=== PATIENT | female | born 1990 | race Caucasian/White ===

== ENCOUNTER 2016-08-06 13:52 | Inpatient (IN) | payer MEDICAID ==
[2016-08-06] MEDS ORDERED: Nalbuphine 20 MG/1 ML Amp IVPUSH PRN (16:18)
[2016-08-06] MEDS ORDERED: Acetaminophen 325 MG Tab PO PRN (16:18)
[2016-08-06] MEDS ORDERED: Ondansetron 4 MG/2 ML SDV IVPUSH PRN (16:18)
[2016-08-06] MEDS ORDERED: Sodium Chloride 0.9% 10 ML Syringe FLUSH PRN (16:18)
[2016-08-06] MEDS ORDERED: Oxytocin/Lactated Ringers 10 UNIT/1,000 ML BAG IV SCH ×2 (16:30→20:00)
--- NOTE | 2016-08-06 16:30 | PCM.LDHP ---
L&D History of Present Illness - General Date of Service: 08/06/16 Admit Problem/Dx: Patient Status Order with Admit Dx/Problem 08/06/16 16:18 Patient Status [ADT] Routine Admission Diagnosis/Problem Admission Diagnosis/Problem Source of Information: Patient History Limitations: Reports: No limitations - History of Present Illness Introduction:: 25 y/o TEMO 08/03/2016 EGA 40w3d GBS negative presented to L&D for evaluation of increased frequency and strength of contractions no leaking fluid or gush of fluid, has had slight bloody show. H/O anti-M antibody (IgM antibody ) no H/O blood transfusions. H/O debridement osteomyelitis left wrist 2002. O positive, Anti-M antibody, Hgb 01/06/17 13.2 plt [id number], neg pap, rubella immune , VDRL NR, HBsAg neg, HIV neg, GC/CT neg. HgB 05/21/16 11.2 OBGS 115 05/21/16 Timing/Duration: Reports: hour(s): Location, : Reports: Abdomen, Lower back Quality: Reports: Ache, Pressure Improves with: Reports: None Worsens with: Reports: None Associated Symptoms: Reports: N - Related Data Allergies/Adverse Reactions: Allergies Allergy/AdvReac Type Severity Reaction Status Date / Time No Known Allergies Allergy Verified 07/27/16 11:24 Past Medical History : 1 Para: 0 (0000) LMP (Approximate): H&P Review of Systems - Review of Systems: Review Of Systems: See Below General: Reports: no symptoms HEENT: Reports: no symptoms Pulmonary: Reports: No Symptoms Cardiovascular: Reports: no symptoms Gastrointestinal: Reports: No symptoms Genitourinary: Reports: no symptoms Musculoskeletal: Reports: no symptoms Skin: Reports: no symptoms Psychiatric: Reports: no symptoms Neurological: Reports: No Symptoms Hematologic/Lymphatic: Reports: no symptoms Immunologic: Reports: no symptoms L&D Exam - Exam Exam: See Below - Vital Signs Vital Signs: Last Vital Signs Temp 98.6 F 08/06/16 14:35 Pulse 69 08/06/16 14:35 Resp 16 08/06/16 14:35 BP 111/72 08/06/16 14:35 Pulse Ox 100 08/06/16 14:35 Weight: 176 lb - OB Specific Fundal Height in cm: 39 Contraction Duration (sec): 60 Contraction Frequency (min): 15-30 Contraction Intensity: Mild movement: active heart tones: present heart tones per min: 135 Heart Rate (FHR) Variability: Moderate (6-25 bmp) Presentation: Vertex - Albright Score Albright Score Cervix Position: Posterior Albright Score Consistency: Soft Albright Score Effacement: 51-70% Albright Score Dilation: 1-2 cm Albright Score Infant's Station: -1 ,0 Albright Score Total: 7 - Exam General: alert, oriented HEENT: Mucosa moist & pink Neck: supple, trachea midline Lungs: Clear to auscultation, Normal respiratory effort Cardiovascular: regular rate, regular rhythm Abdomen: normal bowel sounds, soft Genitourinary: Normal external exam Extremities: normal inspection Skin: warm, dry, intact Neurological: reflexes equal bilateral Psychiatric: alert, normal affect, normal mood - Problem List (1) 40 weeks gestation of SNOMED Code(s): 30939255 ICD Code: Z3A.40 - 40 WEEKS GESTATION OF Status: Acute Current Visit: Yes Problem List Initiated/Reviewed/Updated: No Orders Last 24hrs: Active Orders 24 hr Category Date Time Status Patient Status [ADT] Routine ADT 08/06/16 16:18 Ordered Activity as Tolerated [RC] PFP Care 08/06/16 16:18 Ordered Communication Order [RC] ASDIRECTED Care 08/06/16 16:18 Ordered Heart Tones [RC] ASDIRECTED Care 08/06/16 16:18 Ordered Height and Weight [RC] UPON Care 08/06/16 16:18 Ordered Notify Provider [RC] PFP Care 08/06/16 16:18 Ordered Notify Provider [RC] PRN Care 08/06/16 16:18 Ordered Peripheral IV Care [RC] . DIRECTED Care 08/06/16 16:18 Ordered Vital Signs [RC] PER UNIT ROUTINE Care 08/06/16 16:18 Ordered Regular Diet [DIET] Diet 08/06/16 Dinner Ordered CBC WITH AUTO DIFF [HEME] Stat Lab 08/06/16 16:18 Ordered TYPE AND SCREEN [BBK] Stat Lab 08/06/16 16:18 Ordered Acetaminophen [Tylenol] Med 08/06/16 16:18 Ordered 650 mg PO Q4H PRN Lactated Ringers [Ringers, Lactated] 1,000 ml Med 08/06/16 16:30 Ordered IV ASDIRECTED Lidocaine 1% [Xylocaine 1%] Med 08/06/16 16:18 Once 20 ml INJECT ONETIME ONE Nalbuphine [Nubain] Med 08/06/16 16:18 Ordered 10 mg IVPUSH Q2H PRN Ondansetron [Zofran] Med 08/06/16 16:18 Ordered 4 mg IVPUSH Q4H PRN Oxytocin/Lactated Ringers [Pitocin in LR 10 Units/1,000 Med 08/06/16 16:30 Ordered ML] 10 unit in 1,000 ml IV ASDIRECTED Sodium Chloride 0.9% [Saline Flush] Med 08/06/16 16:18 Ordered 10 ml FLUSH ASDIRECTED PRN hydrOXYzine HCl [Atarax] Med 08/06/16 21:00 Ordered 50 mg PO BEDTIME Electronic Heart Tones Ext w TOCO [WOMSER] Oth 08/06/16 16:18 Ordered Routine Electronic Heart Tones Internal [WOMSER] Per Unit Ot 08/06/16 16:18 Ordered Routine Peripheral IV Insertion Adult [OM.PC] Routine Ot 08/06/16 16:18 Ordered Resuscitation Status Routine Resus Stat 08/06/16 16:18 Ordered Assessment/Plan Comment:: Admit for labor and delivery (Observation status for now)
[2016-08-06] MEDS ORDERED: Lidocaine 1% 50 ML MDV INJECT ONE (20:00)
[2016-08-06] MEDS: Misoprostol 25 MCG (1/4 of 100 MCG) Tab VAG SCH (20:19)
[2016-08-06] MEDS ORDERED: hydrOXYzine HCl 25 MG Tab PO SCH (21:00)
[2016-08-07] MEDS: Lactated Ringers 1,000 ML IV SCH ×4 (00:42→07:47)
[2016-08-07] MEDS ORDERED: fentaNYL 100 MCG/2 ML SDV ONE (00:53)
[2016-08-07] MEDS ORDERED: fentaNYL 100 MCG/2 ML SDV EPIDUR PRN (01:00)
[2016-08-07] MEDS ORDERED: diphenhydrAMINE 50 MG/ML SDV IVPUSH PRN (01:00)
[2016-08-07] MEDS ORDERED: ePHEDrine 50 MG/ML SDV IVPUSH PRN (01:00)
[2016-08-07] MEDS: Bupivacaine/fentaNYL/NS 100 ML Bag EPIDUR SCH ×2 (01:24→08:45)
--- NOTE | 2016-08-07 01:37 | PCM.PREANE ---
Preanesthetic Assessment - Anesthesia/Transfusion/Family Hx Anesthesia History: Prior Anesthesia Without Reaction Family History of Anesthesia Reaction: No Transfusion History: No Prior Transfusion(s) - Review of Systems General: No Symptoms Pulmonary: No Symptoms Cardiovascular: No Symptoms Gastrointestinal: No symptoms Neurological: No Symptoms Other: Reports: None - Physical Assessment Pulse: 84 O2 Sat by Pulse Oximetry: 100 Respiratory Rate: 16 Blood Pressure: 126/64 Temperature: 36.6 C Vital Signs: Last Vital Signs Temp 37.0 C 08/06/16 14:35 Pulse 69 08/06/16 14:35 Resp 16 08/06/16 14:35 BP 111/72 08/06/16 14:35 Pulse Ox 100 08/06/16 14:35 Height: 1.6 m Weight: 79.968 kg ASA Class: 2 Mental Status: Alert & Oriented x3 Airway Class: Mallampati = 1 Dentition: Reports: Normal Dentition Thyro-Mental Finger Breadths: 3 Mouth Opening Finger Breadths: 3 ROM/Head Extension: Full Lungs: Clear to auscultation, Normal respiratory effort Cardiovascular: Regular Rate, Regular Rhythm, No Murmurs - Lab Values: Laboratory Last Values WBC 13.52 K/mm3 (3.98-10.04) H 08/06/16 16:34 RBC 4.21 M/mm3 (3.98-5.22) 08/06/16 16:34 Hgb 11.1 gm/L (11.2-15.7) L 08/06/16 16:34 Hct 33.8 % (34.1-44.9) L 08/06/16 16:34 MCV 80.3 fl (79.4-94.8) 08/06/16 16:34 MCH 26.4 pg (25.6-32.2) 08/06/16 16:34 MCHC 32.8 g/dl (32.2-35.5) 08/06/16 16:34 RDW Std Deviation 41.5 fL (36.4-46.3) 08/06/16 16:34 Plt Count 157 K/mm3 (182-369) L 08/06/16 16:34 MPV 12.3 fl (9.4-12.3) 08/06/16 16:34 Neut % (Auto) 76.1 % (34.0-71.1) H 08/06/16 16:34 Lymph % (Auto) 13.8 % (19.3-51.7) L 08/06/16 16:34 Dillon % (Auto) 8.9 % (4.7-12.5) 08/06/16 16:34 Eos % (Auto) 0.7 (0.7-5.8) 08/06/16 16:34 Baso % (Auto) 0.1 % (0.1-1.2) 08/06/16 16:34 Neut # (Auto) 10.28 K/mm3 (1.56-6.13) H 08/06/16 16:34 Lymph # (Auto) 1.87 K/mm3 (1.18-3.74) 08/06/16 16:34 Dillon # (Auto) 1.21 K/mm3 (0.24-0.36) H 08/06/16 16:34 Eos # (Auto) 0.09 K/mm3 (0.04-0.36) 08/06/16 16:34 Baso # (Auto) 0.02 K/mm3 (0.01-0.08) 08/06/16 16:34 Blood Type O POSITIVE 08/06/16 16:34 Gel Antibody Screen Positive 08/06/16 16:34 - Allergies Allergies/Adverse Reactions: Allergies Allergy/AdvReac Type Severity Reaction Status Date / Time No Known Allergies Allergy Verified 08/06/16 18:24 - Anesthesia Plan Pre-Op Medication Ordered: None - Acknowledgements Anesthesia Type Planned: Epidural Pt an Appropriate Candidate for the Planned Anesthesia: Yes Alternatives and Risks of Anesthesia Discussed w Pt/Guardian: Yes Pt/Guardian Understands and Agrees with Anesthesia Plan: Yes PreAnesthesia Questionnaire Gastrointestinal History: Reports: [place] [employer] History: Reports: - Past Surgical History Musculoskeletal Surgical History: Reports: Other (see below) Other Musculoskeletal Surgeries/Procedures:: 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 - SUBSTANCE USE Smoking Status *Q: Former Smoker Tobacco Use Within Last Twelve Months: Cigarettes Second Hand Smoke Exposure: No Recreational Drug Use History: No - HOME MEDS Home Medications: Home Meds Nitrofurantoin Dillon/Macrocryst [Macrobid] 100 mg PO BID 08/06/16 [History] Pnv No.122/Iron/Folic Acid [ Multi Tablet] 1 each PO DAILY 08/06/16 [ History] - CURRENT (IN HOUSE) MEDS Current Meds: Current Medications Acetaminophen (Tylenol) 650 mg PO Q4H PRN PRN Reason: Pain (Mild 1-3) and fever Diphenhydramine HCl (Benadryl) 25 mg IVPUSH Q6H PRN PRN Reason: Itching Ephedrine Sulfate (Ephedrine Sulfate) 5 mg IVPUSH ASDIRECTED PRN PRN Reason: HYPOTENTSION Fentanyl (Sublimaze) 100 mcg EPIDUR Q3H PRN PRN Reason: PAIN Fentanyl/Bupivacaine HCl (Fentanyl/Bupivacaine/Ns 2 Mcg-0.125% 100 Ml) 100 ml EPIDUR ASDIRECTED [facility] Last Admin: 08/07/16 01:24 Dose: 100 ml Hydroxyzine HCl (Atarax) 50 mg PO BEDTIME [facility] Lactated Ringer's (Ringers, Lactated) 1,000 mls @ 100 mls/hr IV ASDIRECTED [facility] Oxytocin/Lactated Ringer's (Pitocin In Lr 10 Units/1,000 Ml) 10 unit in 1,000 mls @ 500 mls/hr IV ASDIRECTED ARIANA PRN Reason: Protocol Oxytocin/Lactated Ringer's (Pitocin In Lr 10 Units/1,000 Ml) 10 unit in 1,000 mls @ 12 mls/hr IV TITRATE ARIANA; 2 MUNITS/MIN PRN Reason: Protocol Nalbuphine HCl (Nubain) 10 mg IVPUSH Q2H PRN PRN Reason: Pain (moderate 4-6) Ondansetron HCl (Zofran) 4 mg IVPUSH Q4H PRN PRN Reason: Nausea/Vomiting Sodium Chloride (Saline Flush) 10 ml FLUSH ASDIRECTED PRN PRN Reason: Keep Vein Open Discontinued Medications Fentanyl (Sublimaze) Confirm Administered Dose 100 mcg .ROUTE .STK-MED ONE Stop: 08/07/16 00:54 Last Admin: 08/07/16 01:23 Dose: 100 mcg Lidocaine HCl (Xylocaine 1%) 20 ml INJECT ONETIME ONE Stop: 08/06/16 20:01 Misoprostol (Cytotec) 25 mcg VAG Q4HR [facility]ANA Stop: 08/07/16 01:01 Last Admin: 08/06/16 20:19 Dose: 25 mcg
[2016-08-07] MEDS: Misoprostol 25 MCG (1/4 of 100 MCG) Tab VAG SCH (01:59)
--- NOTE | 2016-08-07 07:00 | PCM.SN ---
- Free Text/Narrative Note: Cervix 6 cm, 100, soft, anterior, vertex +1, Cat I FHR amniotomy performed at 0659 thick meconium stained amniotic fluid
[2016-08-07] MEDS ORDERED: Lidocaine 1% 50 ML MDV ONE (11:56)
[2016-08-07] MEDS ORDERED: Lidocaine 1% 50 ML MDV INJECT ONE (12:00)
--- NOTE | 2016-08-07 12:31 | PCM.DEL ---
L & D Note - General Info Date of Service: 08/07/16 - Delivery Note Labor: spontaneous, augmented by ARM, augmented by oxytocin Cervical Ripening Method: Misoprostil Delivery Outcome: Livebirth (Female liveborn 11:56 AM, Wednesday08/07/2016, EMILIANA the vacuum, x2 in the green. Less than 30 seconds. Minimal pressure pulling on the vacuum, Apgars 8/9. 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 Nuchal cord x1. Weight 3760 g, 8 pounds, 4.6 ounces) Presentation: Left Occiput Anterior (EMILIANA) Nuchal cord: present (X1 tight) Prep: povidone-iodine (betadine Anesthesia Type: Local, Epidural Anesthetic: lidocaine (xylocaine) 1% plain (5 mL) Local anesthetic volume: 5cc Amniotic Fluid Description: Meconium stained Episiotomy Type: Midline Laceration: 4th degree Suture type: other (Monocryl x4 sutures) Suture size: 3-0 Placenta: intact, spontaneous (1158, Wednesday08/07/2016, intact, eccentric cord insertion three-vessel cord) Cord: 3 vessels Estimated blood loss: 500 Resuscitation needed: No [place]: suctioned, bulb syringe, cathether, stimulated, warmed, blanket used, warmer used Provider: Nigel Rutledge Score 1 min: 8 Score 5 min: 9 - Patient Data Vitals - most recent: Last Vital Signs Temp 97.9 F 08/07/16 01:37 Pulse 84 08/07/16 01:37 Resp 16 08/07/16 01:37 BP 126/64 08/07/16 01:37 Pulse Ox 100 08/07/16 01:37 Weight - most recent: 176 lb 4.8 oz Lab Results last 24 hrs: Laboratory Results - last 24 hr 08/06/16 08/06/16 Range/Units 16:34 16:34 WBC 13.52 H (3.98-10.04) K/mm3 RBC 4.21 (3.98-5.22) M/mm3 Hgb 11.1 L (11.2-15.7) gm/L Hct 33.8 L (34.1-44.9) % MCV 80.3 (79.4-94.8) fl MCH 26.4 (25.6-32.2) pg MCHC 32.8 (32.2-35.5) g/dl RDW Std Deviation 41.5 (36.4-46.3) fL Plt Count 157 L (182-369) K/mm3 MPV 12.3 (9.4-12.3) fl Neut % (Auto) 76.1 H (34.0-71.1) % Lymph % (Auto) 13.8 L (19.3-51.7) % Will % (Auto) 8.9 (4.7-12.5) % Eos % (Auto) 0.7 (0.7-5.8) Baso % (Auto) 0.1 (0.1-1.2) % Neut # (Auto) 10.28 H (1.56-6.13) K/mm3 Lymph # (Auto) 1.87 (1.18-3.74) K/mm3 Will # (Auto) 1.21 H (0.24-0.36) K/mm3 Eos # (Auto) 0.09 (0.04-0.36) K/mm3 Baso # (Auto) 0.02 (0.01-0.08) K/mm3 Blood Type O POSITIVE Gel Antibody Screen Positive Med Orders - Current: Current Medications Acetaminophen (Tylenol) 650 mg PO Q4H PRN PRN Reason: Pain (Mild 1-3) and fever Diphenhydramine HCl (Benadryl) 25 mg IVPUSH Q6H PRN PRN Reason: Itching Last Admin: 08/07/16 03:13 Dose: 25 mg Ephedrine Sulfate (Ephedrine Sulfate) 5 mg IVPUSH ASDIRECTED PRN PRN Reason: HYPOTENTSION Fentanyl (Sublimaze) 100 mcg EPIDUR Q3H PRN PRN Reason: PAIN Fentanyl/Bupivacaine HCl (Fentanyl/Bupivacaine/Ns 2 Mcg-0.125% 100 Ml) 100 ml EPIDUR ASDIRECTED [facility] Last Admin: 08/07/16 08:45 Dose: 100 ml Hydroxyzine HCl (Atarax) 50 mg PO BEDTIME [facility] Last Admin: 08/07/16 02:00 Dose: Not Given Lactated Ringer's (Ringers, Lactated) 1,000 mls @ 100 mls/hr IV ASDIRECTED [facility] Last Admin: 08/07/16 07:47 Dose: 100 mls/hr Oxytocin/Lactated Ringer's (Pitocin In Lr 10 Units/1,000 Ml) 10 unit in 1,000 mls @ 500 mls/hr IV ASDIRECTED ARIANA PRN Reason: Protocol Oxytocin/Lactated Ringer's (Pitocin In Lr 10 Units/1,000 Ml) 10 unit in 1,000 mls @ 12 mls/hr IV TITRATE ARIANA; 2 MUNITS/MIN PRN Reason: Protocol Last Titration: 08/07/16 07:59 Dose: 11 munits/min, 66 mls/hr Nalbuphine HCl (Nubain) 10 mg IVPUSH Q2H PRN PRN Reason: Pain (moderate 4-6) Ondansetron HCl (Zofran) 4 mg IVPUSH Q4H PRN PRN Reason: Nausea/Vomiting Sodium Chloride (Saline Flush) 10 ml FLUSH ASDIRECTED PRN PRN Reason: Keep Vein Open Discontinued Medications Fentanyl (Sublimaze) Confirm Administered Dose 100 mcg .ROUTE .STK-MED ONE Stop: 08/07/16 00:54 Last Admin: 08/07/16 01:23 Dose: 100 mcg Lidocaine HCl (Xylocaine 1%) 20 ml INJECT ONETIME ONE Stop: 08/06/16 20:01 Last Admin: 08/07/16 02:00 Dose: Not Given Lidocaine HCl (Xylocaine 1%) Confirm Administered Dose 50 ml .ROUTE .STK-MED ONE Stop: 08/07/16 11:57 Misoprostol (Cytotec) 25 mcg VAG Q4HR [facility] Stop: 08/07/16 01:01 Last Admin: 08/07/16 01:59 Dose: Not Given - Problem List & Annotations (1) 40 weeks gestation of SNOMED Code(s): 18992265 Code(s): Z3A.40 - 40 WEEKS GESTATION OF Status: Acute Current Visit: Yes (2) Meconium in amniotic fluid affecting management of mother, delivered SNOMED Code(s): 71708933, 647565320, 446037569 Code(s): O77.0 - LABOR AND DELIVERY COMPLICATED BY MECONIUM IN AMNIOTIC FLUID Status: Acute Current Visit: Yes (3) Nuchal cord without compression, delivered, current hospitalization SNOMED Code(s): 11579772 Code(s): O69.81X0 - LABOR AND DEL COMP BY CORD AROUND NECK, W/O COMPRSN, UNSP Status: Acute Current Visit: Yes (4) Fourth degree laceration of perineum, delivered, current hospitalization SNOMED Code(s): 768867503, 495796573 Code(s): O70.3 - FOURTH DEGREE PERINEAL LACERATION DURING DELIVERY Status: Acute Current Visit: Yes - Problem List Review Problem List Initiated/Reviewed/Updated: No - My Orders Last 24 Hours: My Active Orders 08/06/16 16:18 Patient Status [ADT] Routine Activity as Tolerated [RC] PFP Communication Order [RC] ASDIRECTED Notify Provider [RC] PFP Notify Provider [RC] PRN Peripheral IV Care [RC] . DIRECTED Acetaminophen [Tylenol] 650 mg PO Q4H PRN Nalbuphine [Nubain] 10 mg IVPUSH Q2H PRN Ondansetron [Zofran] 4 mg IVPUSH Q4H PRN Sodium Chloride 0.9% [Saline Flush] 10 ml FLUSH ASDIRECTED PRN Electronic Heart Tones Ext w TOCO [WOMSER] Routine Electronic Heart Tones Internal [WOMSER] Per Unit Routine Peripheral IV Insertion Adult [OM.PC] Routine Resuscitation Status Routine 08/06/16 16:30 Lactated Ringers [Ringers, Lactated] 1,000 ml IV ASDIRECTED Oxytocin/Lactated Ringers [Pitocin in LR 10 Units/1,000 ML] 10 unit in 1,000 ml IV ASDIRECTED 08/06/16 16:34 ANTIBODY IDENTIFICATION [BBK] Stat PATIENT RETYPE [BBK] Stat TYPE AND SCREEN [BBK] Stat 08/06/16 20:00 Oxytocin/Lactated Ringers [Pitocin in LR 10 Units/1,000 ML] 10 unit in 1,000 ml IV TITRATE 08/06/16 21:00 hydrOXYzine HCl [Atarax] 50 mg PO BEDTIME 08/06/16 Dinner Regular Diet [DIET] - Plan Plan:: Admit for labor and delivery (Observation status for now)
[2016-08-07] MEDS ORDERED: Lanolin 100% Cream 7 GM Tube TOP PRN (12:34)
[2016-08-07] MEDS ORDERED: Acetaminophen/oxyCODONE 325-5 MG Tab PO PRN (12:34)
[2016-08-07] MEDS ORDERED: Acetaminophen 325 MG Tab PO PRN (12:34)
[2016-08-07] MEDS ORDERED: Witch Hazel Medicated Pads 100/Jar TOP PRN (12:34)
[2016-08-07] MEDS ORDERED: Simethicone 80 MG Tab.Chew PO PRN (12:34)
[2016-08-07] MEDS: Benzocaine/Menthol 20%-0.5% Spray 56 GM Canister TOP PRN (14:38)
[2016-08-07] MEDS: Ibuprofen 600 MG Tab PO PRN ×2 (14:40→22:19)
--- NOTE | 2016-08-07 15:15 | PCM48HPAN ---
Post Anesthesia Note - EVALUATION WITHIN 48HRS OF ANESTHETIC Vital Signs in Normal Range: Yes Patient Participated in Evaluation: Yes Respiratory Function Stable: Yes Airway Patent: Yes Cardiovascular Function Stable: Yes Hydration Status Stable: Yes Pain Control Satisfactory: Yes Nausea and Vomiting Control Satisfactory: Yes Mental Status Recovered: Yes
[2016-08-07] MEDS: Docusate Sodium 100 MG Cap PO PRN (22:19)
[2016-08-07] MEDS ORDERED: ePHEDrine 50 MG/ML SDV ONE (22:22)
[2016-08-07] MEDS ORDERED: Bupivacaine 0.25% 10 ML SDV ONE (22:22)
[2016-08-08] MEDS: Ibuprofen 600 MG Tab PO PRN ×4 (04:02→23:44)
[2016-08-08] MEDS: Docusate Sodium 100 MG Cap PO PRN (07:58)
[2016-08-08] MEDS: Prenatal Multivitamin with Calcium/Folic Acid/Iron Tab PO SCH (08:05)
--- NOTE | 2016-08-08 10:23 | PCM.SN ---
- Free Text/Narrative Note: POD#1 Afebrile, normal uterine involution, no heavy vaginal leeding, no leg cramps, no BM as yet (fourth degree)
[2016-08-09 03:21] VITALS: BP 98/63
[2016-08-09] MEDS: Docusate Sodium 100 MG Cap PO PRN ×2 (06:02→09:35)
[2016-08-09] MEDS: Benzocaine/Menthol 20%-0.5% Spray 56 GM Canister TOP PRN (07:10)
[2016-08-09] MEDS: Prenatal Multivitamin with Calcium/Folic Acid/Iron Tab PO SCH (09:35)
[2016-08-09] MEDS: Ibuprofen 600 MG Tab PO PRN (09:36)
--- NOTE | 2016-08-09 10:42 | PCM.DCSUM1 ---
Discharge Summary - Hospital Course Free Text/Narrative:: [facility] LIVE L/D Delivery Note Patient Name: LIAM EDWARDS Date of : 89 Patient Status: Inpatient Attending Provider: Nigel Rutledge Date: 08/07/16 12:23 Initialization Date: 08/07/16 12:23 L & D Note - General Info Date of Service: 08/07/16 - Delivery Note Labor: spontaneous, augmented by ARM, augmented by oxytocin Cervical Ripening Method: Misoprostil Delivery Outcome: Livebirth (Female liveborn 11:56 AM, Wednesday08/07/2016, EMILIANA the vacuum, x2 in the green. Less than 30 seconds. Minimal pressure pulling on the vacuum, Apgars 8/9. At one and 5 minutes, respectively, Dr. Vega present (book critic.). Nuchal cord x1. Weight 3760 g, 8 pounds, 4.6 ounces) Presentation: Left Occiput Anterior (EMILIANA) Nuchal cord: present (X1 tight) Prep: povidone-iodine (betadine Anesthesia Type: Local, Epidural Anesthetic: lidocaine (xylocaine) 1% plain (5 mL) Local anesthetic volume: 5cc Amniotic Fluid Description: Meconium stained Episiotomy Type: Midline Laceration: 4th degree Suture type: other (Monocryl x4 sutures) Suture size: 3-0 Placenta: intact, spontaneous (1158, Wednesday08/07/2016, intact, eccentric cord insertion three-vessel cord) Cord: 3 vessels Estimated blood loss: 500 Resuscitation needed: No [place]: suctioned, bulb syringe, cathether, stimulated, warmed, blanket used, warmer used Provider: Nigel Rutledge Score 1 min: 8 Score 5 min: 9 - Patient Data Vitals - most recent: Last Vital Signs Temp 97.9 F 08/07/16 01:37 Pulse 84 08/07/16 01:37 Resp 16 08/07/16 01:37 BP 126/64 08/07/16 01:37 Pulse Ox 100 08/07/16 01:37 Weight - most recent: 176 lb 4.8 oz Lab Results last 24 hrs: Laboratory Results - last 24 hr 08/06/16 08/06/16 Range/Units 16:34 16:34 WBC 13.52 H (3.98-10.04) K/mm3 RBC 4.21 (3.98-5.22) M/mm3 Hgb 11.1 L (11.2-15.7) gm/L Hct 33.8 L (34.1-44.9) % MCV 80.3 (79.4-94.8) fl MCH 26.4 (25.6-32.2) pg MCHC 32.8 (32.2-35.5) g/dl RDW Std Deviation 41.5 (36.4-46.3) fL Plt Count 157 L (182-369) K/mm3 MPV 12.3 (9.4-12.3) fl Neut % (Auto) 76.1 H (34.0-71.1) % Lymph % (Auto) 13.8 L (19.3-51.7) % [place] % (Auto) 8.9 (4.7-12.5) % Eos % (Auto) 0.7 (0.7-5.8) Baso % (Auto) 0.1 (0.1-1.2) % Neut # (Auto) 10.28 H (1.56-6.13) K/mm3 Lymph # (Auto) 1.87 (1.18-3.74) K/mm3 [place] # (Auto) 1.21 H (0.24-0.36) K/mm3 Eos # (Auto) 0.09 (0.04-0.36) K/mm3 Baso # (Auto) 0.02 (0.01-0.08) K/mm3 Blood Type O POSITIVE Gel Antibody Screen Positive Med Orders - Current: Current Medications Acetaminophen (Tylenol) 650 mg PO Q4H PRN PRN Reason: Pain (Mild 1-3) and fever Diphenhydramine HCl (Benadryl) 25 mg IVPUSH Q6H PRN PRN Reason: Itching Last Admin: 08/07/16 03:13 Dose: 25 mg Ephedrine Sulfate (Ephedrine Sulfate) 5 mg IVPUSH ASDIRECTED PRN PRN Reason: HYPOTENTSION Fentanyl (Sublimaze) 100 mcg EPIDUR Q3H PRN PRN Reason: PAIN Fentanyl/Bupivacaine HCl (Fentanyl/Bupivacaine/Ns 2 Mcg-0.125% 100 Ml) 100 ml EPIDUR ASDIRECTED [facility] Last Admin: 08/07/16 08:45 Dose: 100 ml Hydroxyzine HCl (Atarax) 50 mg PO BEDTIME [facility] Last Admin: 08/07/16 02:00 Dose: Not Given Lactated Ringer's (Ringers, Lactated) 1,000 mls @ 100 mls/hr IV ASDIRECTED [facility] Last Admin: 08/07/16 07:47 Dose: 100 mls/hr Oxytocin/Lactated Ringer's (Pitocin In Lr 10 Units/1,000 Ml) 10 unit in 1,000 mls @ 500 mls/hr IV ASDIRECTED ARIANA PRN Reason: Protocol Oxytocin/Lactated Ringer's (Pitocin In Lr 10 Units/1,000 Ml) 10 unit in 1,000 mls @ 12 mls/hr IV TITRATE ARIANA; 2 MUNITS/MIN PRN Reason: Protocol Last Titration: 08/07/16 07:59 Dose: 11 munits/min, 66 mls/hr Nalbuphine HCl (Nubain) 10 mg IVPUSH Q2H PRN PRN Reason: Pain (moderate 4-6) Ondansetron HCl (Zofran) 4 mg IVPUSH Q4H PRN PRN Reason: Nausea/Vomiting Sodium Chloride (Saline Flush) 10 ml FLUSH ASDIRECTED PRN PRN Reason: Keep Vein Open Discontinued Medications Fentanyl (Sublimaze) Confirm Administered Dose 100 mcg .ROUTE .STK-MED ONE Stop: 08/07/16 00:54 Last Admin: 08/07/16 01:23 Dose: 100 mcg Lidocaine HCl (Xylocaine 1%) 20 ml INJECT ONETIME ONE Stop: 08/06/16 20:01 Last Admin: 08/07/16 02:00 Dose: Not Given Lidocaine HCl (Xylocaine 1%) Confirm Administered Dose 50 ml .ROUTE .STK-MED ONE Stop: 08/07/16 11:57 Misoprostol (Cytotec) 25 mcg VAG Q4HR [facility] Stop: 08/07/16 01:01 Last Admin: 08/07/16 01:59 Dose: Not Given - Problem List & Annotations (1) 40 weeks gestation of SNOMED Code(s): 24912009 Code(s): Z3A.40 - 40 WEEKS GESTATION OF Status: Acute Current Visit: Yes (2) Meconium in amniotic fluid affecting management of mother, delivered SNOMED Code(s): 69575503, 201289767, 179406250 Code(s): O77.0 - LABOR AND DELIVERY COMPLICATED BY MECONIUM IN AMNIOTIC FLUID Status: Acute Current Visit: Yes (3) Nuchal cord without compression, delivered, current hospitalization SNOMED Code(s): 90554426 Code(s): O69.81X0 - LABOR AND DEL COMP BY CORD AROUND NECK, W/O COMPRSN, UNSP Status: Acute Current Visit: Yes (4) Fourth degree laceration of perineum, delivered, current hospitalization SNOMED Code(s): 964919941, 641715725 Code(s): O70.3 - FOURTH DEGREE PERINEAL LACERATION DURING DELIVERY Status: Acute Current Visit: Yes - Problem List Review Problem List Initiated/Reviewed/Updated: No - My Orders Last 24 Hours: My Active Orders 08/06/16 16:18 Patient Status [ADT] Routine Activity as Tolerated [RC] PFP Communication Order [RC] ASDIRECTED Notify Provider [RC] PFP Notify Provider [RC] PRN Peripheral IV Care [RC] . DIRECTED Acetaminophen [Tylenol] 650 mg PO Q4H PRN Nalbuphine [Nubain] 10 mg IVPUSH Q2H PRN Ondansetron [Zofran] 4 mg IVPUSH Q4H PRN Sodium Chloride 0.9% [Saline Flush] 10 ml FLUSH ASDIRECTED PRN Electronic Heart Tones Ext w TOCO [WOMSER] Routine Electronic Heart Tones Internal [WOMSER] Per Unit Routine Peripheral IV Insertion Adult [OM.PC] Routine Resuscitation Status Routine 08/06/16 16:30 Lactated Ringers [Ringers, Lactated] 1,000 ml IV ASDIRECTED Oxytocin/Lactated Ringers [Pitocin in LR 10 Units/1,000 ML] 10 unit in 1,000 ml IV ASDIRECTED 08/06/16 16:34 ANTIBODY IDENTIFICATION [BBK] Stat PATIENT RETYPE [BBK] Stat TYPE AND SCREEN [BBK] Stat 08/06/16 20:00 Oxytocin/Lactated Ringers [Pitocin in LR 10 Units/1,000 ML] 10 unit in 1,000 ml IV TITRATE 08/06/16 21:00 hydrOXYzine HCl [Atarax] 50 mg PO BEDTIME 08/06/16 Dinner Regular Diet [DIET] - Plan Plan:: Admit for labor and delivery (Observation status for now) HPI Initial Comments: [facility] LIVE L/D Delivery Note Patient Name: LIAM EDWARDS Date of : 89 Patient Status: Inpatient Attending Provider: Nigel Rutledge Date: 08/07/16 12:23 Initialization Date: 08/07/16 12:23 L & D Note - General Info Date of Service: 08/07/16 - Delivery Note Labor: spontaneous, augmented by ARM, augmented by oxytocin Cervical Ripening Method: Misoprostil Delivery Outcome: Livebirth (Female liveborn 11:56 AM, Wednesday08/07/2016, EMILIANA the vacuum, x2 in the green. Less than 30 seconds. Minimal pressure pulling on the vacuum, Apgars 8/9. At one and 5 minutes, respectively, Dr. Vega present (book critic.). Nuchal cord x1. Weight 3760 g, 8 pounds, 4.6 ounces) Presentation: Left Occiput Anterior (EMILIANA) Nuchal cord: present (X1 tight) Prep: povidone-iodine (betadine Anesthesia Type: Local, Epidural Anesthetic: lidocaine (xylocaine) 1% plain (5 mL) Local anesthetic volume: 5cc Amniotic Fluid Description: Meconium stained Episiotomy Type: Midline Laceration: 4th degree Suture type: other (Monocryl x4 sutures) Suture size: 3-0 Placenta: intact, spontaneous (1158, Wednesday08/07/2016, intact, eccentric cord insertion three-vessel cord) Cord: 3 vessels Estimated blood loss: 500 Resuscitation needed: No [place]: suctioned, bulb syringe, cathether, stimulated, warmed, blanket used, warmer used Provider: Nigel Rutledge Score 1 min: 8 Score 5 min: 9 - Patient Data Vitals - most recent: Last Vital Signs Temp 97.9 F 08/07/16 01:37 Pulse 84 08/07/16 01:37 Resp 16 08/07/16 01:37 BP 126/64 08/07/16 01:37 Pulse Ox 100 08/07/16 01:37 Weight - most recent: 176 lb 4.8 oz Lab Results last 24 hrs: Laboratory Results - last 24 hr 08/06/16 08/06/16 Range/Units 16:34 16:34 WBC 13.52 H (3.98-10.04) K/mm3 RBC 4.21 (3.98-5.22) M/mm3 Hgb 11.1 L (11.2-15.7) gm/L Hct 33.8 L (34.1-44.9) % MCV 80.3 (79.4-94.8) fl MCH 26.4 (25.6-32.2) pg MCHC 32.8 (32.2-35.5) g/dl RDW Std Deviation 41.5 (36.4-46.3) fL Plt Count 157 L (182-369) K/mm3 MPV 12.3 (9.4-12.3) fl Neut % (Auto) 76.1 H (34.0-71.1) % Lymph % (Auto) 13.8 L (19.3-51.7) % [place] % (Auto) 8.9 (4.7-12.5) % Eos % (Auto) 0.7 (0.7-5.8) Baso % (Auto) 0.1 (0.1-1.2) % Neut # (Auto) 10.28 H (1.56-6.13) K/mm3 Lymph # (Auto) 1.87 (1.18-3.74) K/mm3 [place] # (Auto) 1.21 H (0.24-0.36) K/mm3 Eos # (Auto) 0.09 (0.04-0.36) K/mm3 Baso # (Auto) 0.02 (0.01-0.08) K/mm3 Blood Type O POSITIVE Gel Antibody Screen Positive Med Orders - Current: Current Medications Acetaminophen (Tylenol) 650 mg PO Q4H PRN PRN Reason: Pain (Mild 1-3) and fever Diphenhydramine HCl (Benadryl) 25 mg IVPUSH Q6H PRN PRN Reason: Itching Last Admin: 08/07/16 03:13 Dose: 25 mg Ephedrine Sulfate (Ephedrine Sulfate) 5 mg IVPUSH ASDIRECTED PRN PRN Reason: HYPOTENTSION Fentanyl (Sublimaze) 100 mcg EPIDUR Q3H PRN PRN Reason: PAIN Fentanyl/Bupivacaine HCl (Fentanyl/Bupivacaine/Ns 2 Mcg-0.125% 100 Ml) 100 ml EPIDUR ASDIRECTED [facility] Last Admin: 08/07/16 08:45 Dose: 100 ml Hydroxyzine HCl (Atarax) 50 mg PO BEDTIME [facility] Last Admin: 08/07/16 02:00 Dose: Not Given Lactated Ringer's (Ringers, Lactated) 1,000 mls @ 100 mls/hr IV ASDIRECTED [facility] Last Admin: 08/07/16 07:47 Dose: 100 mls/hr Oxytocin/Lactated Ringer's (Pitocin In Lr 10 Units/1,000 Ml) 10 unit in 1,000 mls @ 500 mls/hr IV ASDIRECTED [facility] PRN Reason: Protocol Oxytocin/Lactated Ringer's (Pitocin In Lr 10 Units/1,000 Ml) 10 unit in 1,000 mls @ 12 mls/hr IV TITRATE ARIANA; 2 MUNITS/MIN PRN Reason: Protocol Last Titration: 08/07/16 07:59 Dose: 11 munits/min, 66 mls/hr Nalbuphine HCl (Nubain) 10 mg IVPUSH Q2H PRN PRN Reason: Pain (moderate 4-6) Ondansetron HCl (Zofran) 4 mg IVPUSH Q4H PRN PRN Reason: Nausea/Vomiting Sodium Chloride (Saline Flush) 10 ml FLUSH ASDIRECTED PRN PRN Reason: Keep Vein Open Discontinued Medications Fentanyl (Sublimaze) Confirm Administered Dose 100 mcg .ROUTE .STK-MED ONE Stop: 08/07/16 00:54 Last Admin: 08/07/16 01:23 Dose: 100 mcg Lidocaine HCl (Xylocaine 1%) 20 ml INJECT ONETIME ONE Stop: 08/06/16 20:01 Last Admin: 08/07/16 02:00 Dose: Not Given Lidocaine HCl (Xylocaine 1%) Confirm Administered Dose 50 ml .ROUTE .STK-MED ONE Stop: 08/07/16 11:57 Misoprostol (Cytotec) 25 mcg VAG Q4HR [facility] Stop: 08/07/16 01:01 Last Admin: 08/07/16 01:59 Dose: Not Given - Problem List & Annotations (1) 40 weeks gestation of SNOMED Code(s): 03642927 Code(s): Z3A.40 - 40 WEEKS GESTATION OF Status: Acute Current Visit: Yes (2) Meconium in amniotic fluid affecting management of mother, delivered SNOMED Code(s): 47586276, 075637389, 770945929 Code(s): O77.0 - LABOR AND DELIVERY COMPLICATED BY MECONIUM IN AMNIOTIC FLUID Status: Acute Current Visit: Yes (3) Nuchal cord without compression, delivered, current hospitalization SNOMED Code(s): 11571202 Code(s): O69.81X0 - LABOR AND DEL COMP BY CORD AROUND NECK, W/O COMPRSN, UNSP Status: Acute Current Visit: Yes (4) Fourth degree laceration of perineum, delivered, current hospitalization SNOMED Code(s): 794949071, 324737173 Code(s): O70.3 - FOURTH DEGREE PERINEAL LACERATION DURING DELIVERY Status: Acute Current Visit: Yes - Problem List Review Problem List Initiated/Reviewed/Updated: No - My Orders Last 24 Hours: My Active Orders 08/06/16 16:18 Patient Status [ADT] Routine Activity as Tolerated [RC] PFP Communication Order [RC] ASDIRECTED Notify Provider [RC] PFP Notify Provider [RC] PRN Peripheral IV Care [RC] . DIRECTED Acetaminophen [Tylenol] 650 mg PO Q4H PRN Nalbuphine [Nubain] 10 mg IVPUSH Q2H PRN Ondansetron [Zofran] 4 mg IVPUSH Q4H PRN Sodium Chloride 0.9% [Saline Flush] 10 ml FLUSH ASDIRECTED PRN Electronic Heart Tones Ext w TOCO [WOMSER] Routine Electronic Heart Tones Internal [WOMSER] Per Unit Routine Peripheral IV Insertion Adult [OM.PC] Routine Resuscitation Status Routine 08/06/16 16:30 Lactated Ringers [Ringers, Lactated] 1,000 ml IV ASDIRECTED Oxytocin/Lactated Ringers [Pitocin in LR 10 Units/1,000 ML] 10 unit in 1,000 ml IV ASDIRECTED 08/06/16 16:34 ANTIBODY IDENTIFICATION [BBK] Stat PATIENT RETYPE [BBK] Stat TYPE AND SCREEN [BBK] Stat 08/06/16 20:00 Oxytocin/Lactated Ringers [Pitocin in LR 10 Units/1,000 ML] 10 unit in 1,000 ml IV TITRATE 08/06/16 21:00 hydrOXYzine HCl [Atarax] 50 mg PO BEDTIME 08/06/16 Dinner Regular Diet [DIET] - Plan Plan:: Admit for labor and delivery (Observation status for now) Brief History: [facility] LIVE . L/D Delivery Note. Patient Name: LIAM EDWARDS LYNPAedical Record Number: [id number]. Date of : Patient Status: Inpatient. Attending Provider: Nigel Rutledge Number: [id number]. Date: 08/07/16 12:23Initialization Date: 08/07/16 12:23. L & D Note. - General Info. Date of Service: 08/07/16. - Delivery Note. Labor: spontaneous, augmented by ARM, augmented by oxytocin. Cervical Ripening Method: Misoprostil. Delivery Outcome: Livebirth (Female liveborn 11:56 AM, Wednesday08/07/2016, EMILIANA the vacuum, x2 in the green. Less than 30 seconds. Minimal pressure pulling on the vacuum, Apgars 8/9. At one and 5 minutes, respectively, Dr. Vega present (book critic.). Nuchal cord x1. Weight 3760 g, 8 pounds, 4.6 ounces). Presentation: Left Occiput Anterior (EMILIANA). Nuchal cord: present (X1 tight). Prep: povidone-iodine (betadine. Anesthesia Type: Local, Epidural. Anesthetic: lidocaine (xylocaine) 1% plain (5 mL). Local anesthetic volume: 5cc. Amniotic Fluid Description: Meconium stained. Episiotomy Type: Midline. Laceration: 4th degree. Suture type: other ( Monocryl x4 sutures). Suture size: 3-0. Placenta: intact, spontaneous (1158, Wednesday08/07/2016, intact, eccentric cord insertion three-vessel cord). Cord: 3 vessels. Estimated blood loss: 500. Resuscitation needed: No. : suctioned, bulb syringe, cathether, stimulated, warmed, blanket used, warmer used. Provider: Nigel Rutledge. Score 1 min: 8. Score 5 min: 9. - Patient Data. Vitals - most recent: Last Vital Signs. Temp 97.9 F 08/07/16 01:37. Pulse 84 08/07/16 01:37. Resp 16 08/07/16 01: 37. BP 126/64 08/07/16 01:37. Pulse Ox 100 08/07/16 01:37. Weight - most recent: 176 lb 4.8 oz. Lab Results last 24 hrs: Laboratory Results - last 24 hr. 08/06/1704Range/Units. 16:3416:34. WBC 13.52 H (3.98-10.04) K/ mm3. RBC 4.21 (3.98-5.22) M/mm3. Hgb 11.1 L (11.2-15.7) gm/L. Hct 33.8 L ( 34.1-44.9) %. MCV 80.3 (79.4-94.8) fl. MCH 26.4 (25.6-32.2) pg. MCHC 32.8 (32.2-35.5) g/dl. RDW Std Deviation 41.5 (36.4-46.3) fL. Plt Count 157 L ( 182-369) K/mm3. MPV 12.3 (9.4-12.3) fl. Neut % (Auto) 76.1 H (34.0-71.1) % . Lymph % (Auto) 13.8 L (19.3-51.7) %. [place] % (Auto) 8.9 (4.7-12.5) %. Eos % (Auto) 0.7 (0.7-5.8). Baso % (Auto) 0.1 (0.1-1.2) %. Neut # (Auto) 10.28 H (1.56-6.13) K/mm3. Lymph # (Auto) 1.87 (1.18-3.74) K/mm3. [place] # (Auto) 1.21 H (0.24-0.36) K/mm3. Eos # (Auto) 0.09 (0.04-0.36) K/mm3. Baso # (Auto ) 0.02 (0.01-0.08) K/mm3. Blood Type O POSITIVE. Gel Antibody Screen Positive. Med Orders - Current: Current Medications. Acetaminophen (Tylenol) 650 mg PO Q4H PRN. PRN Reason: Pain (Mild 1-3) and fever. Diphenhydramine HCl (Benadryl) 25 mg IVPUSH Q6H PRN. PRN Reason: Itching. Last Admin: 03:13 Dose: 25 mg. Ephedrine Sulfate (Ephedrine Sulfate) 5 mg IVPUSH ASDIRECTED PRN. PRN Reason: HYPOTENTSION. Fentanyl (Sublimaze) 100 mcg EPIDUR Q3H PRN. PRN Reason: PAIN. Fentanyl/Bupivacaine HCl (Fentanyl/ Bupivacaine/Ns 2 Mcg-0.125% 100 Ml) 100 ml EPIDUR ASDIRECTED ARIANA. Last Admin: 08/07/16 08:45 Dose: 100 ml. Hydroxyzine HCl (Atarax) 50 mg PO BEDTIME ARIANA. Last Admin: 08/07/16 02:00 Dose: Not Given. Lactated Ringer's (Ringers, Lactated) 1,000 mls @ 100 mls/hr IV ASDIRECTED ARIANA. Last Admin: 08/07/16 07: 47 Dose: 100 mls/hr. Oxytocin/Lactated Ringer's (Pitocin In Lr 10 Units/1,000 Ml) 10 unit in 1,000 mls @ 500 mls/hr IV ASDIRECTED ARIANA. PRN Reason: Protocol. Oxytocin/Lactated Ringer's (Pitocin In Lr 10 Units/1,000 Ml) 10 unit in 1,000 mls @ 12 mls/hr IV TITRATE ARIANA; 2 MUNITS/MIN. PRN Reason: Protocol. Last Titration: 08/07/16 07:59 Dose: 11 munits/min, 66 mls/hr. Nalbuphine HCl (Nubain) 10 mg IVPUSH Q2H PRN. PRN Reason: Pain (moderate 4-6) . Ondansetron HCl (Zofran) 4 mg IVPUSH Q4H PRN. PRN Reason: Nausea/Vomiting. Sodium Chloride (Saline Flush) 10 ml FLUSH ASDIRECTED PRN. PRN Reason: Keep Vein Open. Discontinued Medications. Fentanyl (Sublimaze) Confirm Administered Dose 100 mcg .ROUTE .STK-MED ONE. Stop: 08/07/16 00:54. Last Admin: 08/07/16 01:23 Dose: 100 mcg. Lidocaine HCl (Xylocaine 1%) 20 ml INJECT ONETIME ONE. Stop: 08/06/16 20:01. Last Admin: 08/07/16 02:00 Dose: Not Given. Lidocaine HCl (Xylocaine 1%) Confirm Administered Dose 50 ml .ROUTE .STK-MED ONE. Stop: 08/07/16 11:57. Misoprostol (Cytotec) 25 mcg VAG Q4HR ARIANA. Stop: 08/07/16 01:01. Last Admin: 08/07/16 01:59 Dose: Not Given. - Problem List & Annotations. (1) 40 weeks gestation of . SNOMED Code(s ): 48130890. Code(s): Z3A.40 - 40 WEEKS GESTATION OF Status: Acute Current Visit: Yes. (2) Meconium in amniotic fluid affecting management of mother, delivered. SNOMED Code(s): 05187974, 893446996, 278257931. Code(s): O77.0 - LABOR AND DELIVERY COMPLICATED BY MECONIUM IN AMNIOTIC FLUID Status: Acute Current Visit: Yes. (3) Nuchal cord without compression, delivered, current hospitalization. SNOMED Code(s): 66299485. Code(s): O69.81X0 - LABOR AND DEL COMP BY CORD AROUND NECK, W/O COMPRSN, UNSP Status: Acute Current Visit: Yes. (4) Fourth degree laceration of perineum, delivered, current hospitalization. SNOMED Code(s): 552807684, 420807687. Code(s): O70.3 - FOURTH DEGREE PERINEAL LACERATION DURING DELIVERY Status: Acute Current Visit: Yes. - Problem List Review. Problem List Initiated/Reviewed/Updated: No. - My Orders. Last 24 Hours: My Active Orders. 08/06/16 16:18. Patient Status [ADT] Routine. Activity as Tolerated [RC] PFP. Communication Order [RC ] ASDIRECTED. Notify Provider [RC] PFP. Notify Provider [RC] PRN. Peripheral IV Care [RC] . DIRECTED. Acetaminophen [Tylenol] 650 mg PO Q4H PRN. Nalbuphine [Nubain] 10 mg IVPUSH Q2H PRN. Ondansetron [Zofran] 4 mg IVPUSH Q4H PRN. Sodium Chloride 0.9% [Saline Flush] 10 ml FLUSH ASDIRECTED PRN. Electronic Heart Tones Ext w TOCO [WOMSER] Routine. Electronic Heart Tones Internal [WOMSER] Per Unit Routine. Peripheral IV Insertion Adult [ OM.PC] Routine. Resuscitation Status Routine. 08/06/16 16:30. Lactated Ringers [Ringers, Lactated] 1,000 ml IV ASDIRECTED. Oxytocin/Lactated Ringers [ Pitocin in LR 10 Units/1,000 ML] 10 unit in 1,000 ml IV ASDIRECTED. 08/06/16 16 :34. ANTIBODY IDENTIFICATION [BBK] Stat. PATIENT RETYPE [BBK] Stat. TYPE AND SCREEN [BBK] Stat. 08/06/16 20:00. Oxytocin/Lactated Ringers [Pitocin in LR 10 Units/1,000 ML] 10 unit in 1,000 ml IV TITRATE. 08/06/16 21:00. hydrOXYzine HCl [Atarax] 50 mg PO BEDTIME. 08/06/16 Dinner. Regular Diet [ DIET]. - Plan. Plan:: Admit for labor and delivery (Observation status for now) - Discharge Data Discharge Date: 08/09/16 Discharge Disposition: Home, Self-Care 01 Condition: Good - Discharge Diagnosis/Problem(s) (1) 40 weeks gestation of SNOMED Code(s): 63625437 ICD Code: Z3A.40 - 40 WEEKS GESTATION OF Status: Acute Current Visit: Yes (2) Meconium in amniotic fluid affecting management of mother, delivered SNOMED Code(s): 46035450, 684454632, 419060767 ICD Code: O77.0 - LABOR AND DELIVERY COMPLICATED BY MECONIUM IN AMNIOTIC FLUID Status: Acute Current Visit: Yes (3) Nuchal cord without compression, delivered, current hospitalization SNOMED Code(s): 85951810 ICD Code: O69.81X0 - LABOR AND DEL COMP BY CORD AROUND NECK, W/O COMPRSN, UNSP Status: Acute Current Visit: Yes (4) Fourth degree laceration of perineum, delivered, current hospitalization SNOMED Code(s): 801105333, 136295995 ICD Code: O70.3 - FOURTH DEGREE PERINEAL LACERATION DURING DELIVERY Status : Acute Current Visit: Yes (5) Anemia, SNOMED Code(s): 601391417 ICD Code: O90.81 - ANEMIA OF THE PUERPERIUM Status: Acute Current Visit: Yes - Patient Summary/Data Complications: None Consults: None Hospital Course: Uneventful - Patient Instructions Diet: Heart Healthy Diet Driving: Do Not Drive (X48 hours) Showering/Bathing: May Shower Notify Provider of: Fever, Increased Pain, Swelling and Redness, Drainage, Nausea and/or Vomiting - Discharge Plan Home Medications: Home Meds Nitrofurantoin [place]/Macrocryst [Macrobid] 100 mg PO BID 08/06/16 [History] Pnv No.122/Iron/Folic Acid [ Multi Tablet] 1 each PO DAILY 08/06/16 [ History] Acetaminophen [Tylenol] 650 mg PO Q6H PRN #0 tablet 08/09/16 [Rx] Benzocaine/Menthol [Dermoplast Pain Relief [place]] 1 spray TOP ASDIRECTED PRN #0 canister 08/09/16 [Rx] Docusate Sodium [Colace] 100 mg PO BID PRN #0 cap 08/09/16 [Rx] Ibuprofen [IJD: Ibuprofen] 200 - 600 mg PO Q6H PRN #0 tablet 08/09/16 [Rx] Simethicone 80 mg PO Q4H PRN #0 tab.chew 08/09/16 [Rx] Witch [place] [Tucks] 1 pad TOP ASDIRECTED PRN #0 pad 08/09/16 [Rx] Referrals: Nigel Rutledge MD [Primary Care Provider] - (6 weeks) - Discharge Summary/Plan Comment DC Time >30 min.: No - Patient Data Vitals - Most Recent: Last Vital Signs Temp 97.5 F 08/09/16 03:20 Pulse 84 08/09/16 03:20 Resp 16 08/09/16 03:20 BP 98/63 08/09/16 03:20 Pulse Ox 99 08/09/16 03:20 Weight - Most Recent: 176 lb 4.8 oz I&O - Last 24 hours: Intake & Output 08/08/16 08/09/16 08/09/16 22:59 06:59 14:59 Intake Total 240 Balance 240 Med Orders - Current: Current Medications Acetaminophen (Tylenol) 650 mg PO Q4H PRN PRN Reason: mild pain or fever Benzocaine/Menthol (Dermoplast Pain Relief [place]) 0 gm TOP ASDIRECTED PRN PRN Reason: Perineal Comfort Measure Last Admin: 08/09/16 07:10 Dose: 1 can Docusate Sodium (Colace) 100 mg PO BID PRN PRN Reason: Constipation Last Admin: 08/09/16 09:35 Dose: 100 mg Emollient Ointment (Lansinoh Hpa) 0 gm TOP ASDIRECTED PRN PRN Reason: Sore Nipples Ibuprofen (Motrin) 600 mg PO Q4H PRN PRN Reason: Mild pain or fever Last Admin: 08/09/16 09:36 Dose: 600 mg Oxycodone/Acetaminophen (Percocet 325-5 Mg) 2 tab PO Q4H PRN PRN Reason: Pain (moderate 4-6) Prenat Multivit/Heating Engineer/Iron/Folic Ac ( Plus Iron) 1 each PO DAILY ARIANA Last Admin: 08/09/16 09:35 Dose: 1 each Simethicone (Simethicone) 80 mg PO Q4H PRN PRN Reason: Gas Witch Merry (Tucks) 1 pad TOP ASDIRECTED PRN PRN Reason: Hemorrhoid pain Last Admin: 08/07/16 14:38 Dose: 1 tub Discontinued Medications Acetaminophen (Tylenol) 650 mg PO Q4H PRN PRN Reason: Pain (Mild 1-3) and fever Diphenhydramine HCl (Benadryl) 25 mg IVPUSH Q6H PRN PRN Reason: Itching Last Admin: 08/07/16 03:13 Dose: 25 mg Ephedrine Sulfate (Ephedrine Sulfate) 5 mg IVPUSH ASDIRECTED PRN PRN Reason: HYPOTENTSION Fentanyl (Sublimaze) Confirm Administered Dose 100 mcg .ROUTE .STK-MED ONE Stop: 08/07/16 00:54 Last Admin: 08/07/16 01:23 Dose: 100 mcg Fentanyl (Sublimaze) 100 mcg EPIDUR Q3H PRN PRN Reason: PAIN Fentanyl/Bupivacaine HCl (Fentanyl/Bupivacaine/Ns 2 Mcg-0.125% 100 Ml) 100 ml EPIDUR ASDIRECTED ARIANA Last Admin: 08/07/16 08:45 Dose: 100 ml Hydroxyzine HCl (Atarax) 50 mg PO BEDTIME [facility] Last Admin: 08/07/16 02:00 Dose: Not Given Lactated Ringer's (Ringers, Lactated) 1,000 mls @ 100 mls/hr IV ASDIRECTED ARIANA Last Admin: 08/07/16 07:47 Dose: 100 mls/hr Oxytocin/Lactated Ringer's (Pitocin In Lr 10 Units/1,000 Ml) 10 unit in 1,000 mls @ 500 mls/hr IV ASDIRECTED ARIANA PRN Reason: Protocol Oxytocin/Lactated Ringer's (Pitocin In Lr 10 Units/1,000 Ml) 10 unit in 1,000 mls @ 12 mls/hr IV TITRATE ARIANA; 2 MUNITS/MIN PRN Reason: Protocol Last Titration: 08/07/16 07:59 Dose: 11 munits/min, 66 mls/hr Lidocaine HCl (Xylocaine 1%) 20 ml INJECT ONETIME ONE Stop: 08/06/16 20:01 Last Admin: 08/07/16 02:00 Dose: Not Given Lidocaine HCl (Xylocaine 1%) Confirm Administered Dose 50 ml .ROUTE .K-MED ONE Stop: 08/07/16 11:57 Last Admin: 08/07/16 15:35 Dose: Not Given Lidocaine HCl (Xylocaine 1%) 50 ml INJECT ASDIRECTED ONE Stop: 08/07/16 12:01 Last Admin: 08/07/16 12:10 Dose: 50 ml Misoprostol (Cytotec) 25 mcg VAG Q4HR [facility] Stop: 08/07/16 01:01 Last Admin: 08/07/16 01:59 Dose: Not Given Nalbuphine HCl (Nubain) 10 mg IVPUSH Q2H PRN PRN Reason: Pain (moderate 4-6) Ondansetron HCl (Zofran) 4 mg IVPUSH Q4H PRN PRN Reason: Nausea/Vomiting Sodium Chloride (Saline Flush) 10 ml FLUSH ASDIRECTED PRN PRN Reason: Keep Vein Open *Q Meaningful Use (DIS) - VTE *Q VTE Criteria *Q: - Stroke *Q Stroke Criteria *Q: - AMI *Q AMI Criteria *Q:
== END 2016-08-09 12:15 | disposition home or self-care (01) | DRG 775 ==
LOC: JD.OB 13:52 → JD.OBCHECK 13:52 → JD.OB 16:18 → OBSVTOIN 08-07 11:56
PROVIDERS: ADMIT Obstetrics & Gynecology; ATTEND Obstetrics & Gynecology
PROC: 10D07Z6 Extraction of Products of Conception, Vacuum, Via Natural or Artificial Opening (ICD-10-PCS; principal; 2016-08-07)
PROC: 10907ZC Drainage of Amniotic Fluid, Therapeutic from Products of Conception, Via Natural or Artificial Opening (ICD-10-PCS; 2016-08-07)
PROC: 0W8NXZZ Division of Female Perineum, External Approach (ICD-10-PCS; 2016-08-07)
PROC: 00HU33Z Insertion of Infusion Device into Spinal Canal, Percutaneous Approach (ICD-10-PCS; 2016-08-07)
PROC: 3E0R3CZ (ICD-10-PCS; 2016-08-07)
DX: O70.3 Fourth degree perineal laceration during delivery (principal); O69.81X0 Labor and delivery complicated by cord around neck, without compression, not applicable or unspecified; Z3A.41 41 weeks gestation of pregnancy; Z37.0 Single live birth; O77.0 Labor and delivery complicated by meconium in amniotic fluid
CPT/HCPCS: 01967; 36415; 85025; 86850; 86870; 86900; 86901; A9270-GY; J1200; J2590; J3010; J7120

== ENCOUNTER 2017-06-30 05:01 | Inpatient (IN) | payer BC ==
--- NOTE | 2017-06-29 21:36 | PCM.LDHP ---
L&D History of Present Illness - General Date of Service: 06/29/17 Admit Problem/Dx: Admission Diagnosis/Problem Admission Diagnosis/Problem 06/29/17 21:19 Monochorionic, diamniotic Twin gestation with baby A in breech presentation Source of Information: Patient History Limitations: Reports: No Limitations - History of Present Illness Introduction:: Korin is a 26-year-old 2 para 1001 white female who is admitted for elective primary section T effect delivery of twins. She has an TEMO of 07/24/2017 as set by her first ultrasound done at 7-5/7 weeks. This places her at 36 and 3/7 weeks gestational age. Babies have an estimated weight of 6 lbs. 5 oz. The recommendation for primary section at this gestational age made by ISELA. The procedure, risks, benefits, auscultations follow-up were discussed in detail with patient. She appears understand, wishes to proceed and signed consent. 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 Her TEMO is 07/24/2017 by early ultrasound that was performed on 01/13/2017. She has had numerous ultrasounds since that time supporting her dates. Her very first visit occurred on 01/13/2017. She was seen on a very regular basis. Her weight gain was from 173.2 pounds up to 193 pounds for a total of 20 pounds. Her vital signs remained stable throughout the course. Her fundal height growth was appropriate for twin gestation. Patient is given a flu shot on 01/28/2017. Her group B strep screen was negative. Laboratory testing in shows her blood to be O+ with a positive anti-M screen. Her hemoglobin at first visit was 13.5 and platelets are 201, 000. Rubella titer shows immunity. RPR is nonreactive. Hepatitis B surface antigen and HIV assays both negative. Her chlamydia and gonorrhea both negative. Her second trimester lab testing includes a hemoglobin of 11.0 g/dL and platelets 143,000. Her diabetic screening test was normal at 115. Group B strep screen was negative. Allergies: none Medications: 1. Folic acid 1 mg eddi vitamins 1 daily. 2. vitamins 1 daily Past medical history: 1. vacuum extraction delivery 08/07/2016 at 40 weeks gestational age-8 lbs. 4 oz.- female-12 hours labor - Luciana Balderrama 1. Normal spontaneous vaginal delivery 1 Past surgical history: Noncontributory Family history: Generally healthy. No anesthesia, bleeding, blood clotting problems noted in the family. Social history: Patient is . is [place]. They live in [place], [place]. She does not work outside the home. Either uses any alcohol drugs tobacco significance. Review of systems: General patient having no concerns. Her tummy is a vague with a lot of baby present within. No contractions. Baby is active. Skin: Negative Lungs: No respirato symptoms or infectious symptoms noted Cardiovascular No chest pain or exercise intolerance Rest: Changes associated with GI: Negative. : Changes associated with fundal height approximately 44 cm. Musculoskeletal: Negative Neurological: Negative Physical examination: Gen. patient is well-developed well-nourished pleasant fill stated age in no acute distress. Blood pressure in clinic on 06/29/2017 was 110/62. Weight was 193.2 pounds up 20 pounds since first visit. heart rate 131. Skin is warm and dry without lesions. HEENT, neck,back normal limit. Lungs are clear Cardiovascular exam shows regular rhythm Abdomen soft and protuberant fundal light of 44 cm. Extremities: legs nontender Neurologi Negativecal: - Related Data Allergies/Adverse Reactions: Allergies Allergy/AdvReac Type Severity Reaction Status Date / Time No Known Allergies Allergy Verified 08/06/16 18:24 Home Medications: Home Meds Nitrofurantoin [place]/Macrocryst [Macrobid] 100 mg PO BID 08/06/16 [History] Pnv No.122/Iron/Folic Acid [ Multi Tablet] 1 each PO DAILY 08/06/16 [ History] Acetaminophen [Tylenol] 650 mg PO Q6H PRN #0 tablet 08/09/16 [Rx] Benzocaine/Menthol [Dermoplast Pain Relief [place]] 1 spray TOP ASDIRECTED PRN #0 canister 08/09/16 [Rx] Docusate Sodium [Colace] 100 mg PO BID PRN #0 cap 08/09/16 [Rx] Ibuprofen [IJD: Ibuprofen] 200 - 600 mg PO Q6H PRN #0 tablet 08/09/16 [Rx] Simethicone 80 mg PO Q4H PRN #0 tab.chew 08/09/16 [Rx] Emily Sousa [Tucks] 1 pad TOP ASDIRECTED PRN #0 pad 08/09/16 [Rx] Past Medical History Gastrointestinal History: Reports: GERD 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: Reports: - Past Surgical History Musculoskeletal Surgical History: Reports: Other (See Below) Social & Family History - Family History Family Medical History: Noncontributory - Tobacco Use Smoking Status *Q: Former Smoker Years of Tobacco use: 0 Packs/Tins Daily: 0 Used Tobacco, but Quit: Yes Month/Year Tobacco Last Used: 07/2015 Second Hand Smoke Exposure: No - Caffeine Use Caffeine Use: Reports: Coffee Other Caffeine Use: 1-2 cups of coffee per day - Recreational Drug Use Recreational Drug Use: No H&P Review of Systems - Review of Systems: Review Of Systems: See Below L&D Exam - Exam Exam: See Below Problem List Initiated/Reviewed/Updated: Yes Assessment/Plan Comment:: Assessment: 1. 36-3/7 week intrauterine , mono chorionic, dye amniotic twin gestation with first baby in emelyn breech presentation and baby transverse. She is here for elective primary section. Procedure, risks, benefits, complications and alternative plans discussed with her in detail. She wishes to proceed. 2. Group B strep negative 3. Patient is rubella immune 4. Patient plans to bottlefeed Plan: 1. Primary lower uterine segment transverse section with Pfannenstiel skin incision under spinal block. Procedure, risks, benefits, alternatives of care and follow-up were discussed in detail with patient. She appears to understand, wishes to proceed and has signed a consent is signed. 2 DVT prophylaxis with SCDs 3. Ancef 2 g IV preop for infection prophylaxis. 4 Routine pre-op labs including type and screen, CBC, urinalysis.. 5.Patient plans to bottlefeed.
[2017-06-30] MEDS ORDERED: Metoclopramide 10 MG/2 ML SDV IVPUSH ONE (05:17)
[2017-06-30] MEDS ORDERED: Sodium Chloride 0.9% 10 ML Syringe FLUSH PRN (05:17)
[2017-06-30] MEDS ORDERED: Citric Acid/Sodium Citrate Solution 30 ML Cup PO ONE (05:17)
[2017-06-30] MEDS: Lactated Ringers 1,000 ML IV SCH ×2 (05:41→07:24)
[2017-06-30] MEDS ORDERED: ceFAZolin 1 GM in Premix Bag 1 BAG IV ONE (06:50)
[2017-06-30] MEDS ORDERED: Bupivacaine 0.5% 30 ML SDV ONE (07:07)
[2017-06-30] MEDS ORDERED: Oxytocin 10 Units/1 ML SDV ONE (07:10)
[2017-06-30] MEDS ORDERED: ceFAZolin 1 GM Vial ONE (07:10)
[2017-06-30] MEDS ORDERED: Ondansetron 4 MG/2 ML SDV ONE (07:10)
[2017-06-30] MEDS ORDERED: Morphine PF 10 MG/10 ML SDV ONE (07:16)
--- NOTE | 2017-06-30 07:26 | PCM.PREANE ---
Preanesthetic Assessment - Procedure Proposed Procedure: Primary C Section for twins - Anesthesia/Transfusion/Family Hx Anesthesia History: Prior Anesthesia Without Reaction Family History of Anesthesia Reaction: No Transfusion History: No Prior Transfusion(s) - Review of Systems General: No Symptoms Pulmonary: No Symptoms Cardiovascular: No Symptoms Gastrointestinal: No Symptoms Neurological: No Symptoms Other: Reports: None - Physical Assessment NPO Status Date: 06/29/17 NPO Status Time: 20:00 Respiratory Rate: 18 Vital Signs: Last Vital Signs Temp 36.9 C 06/30/17 05:17 Pulse 87 06/30/17 05:17 Resp 18 06/30/17 05:17 BP 94/43 L 06/30/17 05:17 Pulse Ox Height: 1.6 m Weight: 87.288 kg ASA Class: 2 Mental Status: Alert & Oriented x3 Airway Class: Mallampati = 1 Dentition: Reports: Normal Dentition Thyro-Mental Finger Breadths: 3 Mouth Opening Finger Breadths: 3 ROM/Head Extension: Full Lungs: Clear to Auscultation, Normal Respiratory Effort Cardiovascular: Regular Rate, Regular Rhythm - Allergies Allergies/Adverse Reactions: Allergies Allergy/AdvReac Type Severity Reaction Status Date / Time No Known Allergies Allergy Verified 08/06/16 18:24 - Blood Blood Available: No Product(s) Available: None - Anesthesia Plan Pre-Op Medication Ordered: None - Acknowledgements Anesthesia Type Planned: Spinal (with duramorph) Pt an Appropriate Candidate for the Planned Anesthesia: Yes Alternatives and Risks of Anesthesia Discussed w Pt/Guardian: Yes Pt/Guardian Understands and Agrees with Anesthesia Plan: Yes PreAnesthesia Questionnaire Gastrointestinal History: Reports: 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: - Past Surgical History Musculoskeletal Surgical History: Reports: Other (See Below) - SUBSTANCE USE Smoking Status *Q: Former Smoker Tobacco Use Within Last Twelve Months: No Second Hand Smoke Exposure: No Recreational Drug Use History: No - HOME MEDS Home Medications: Home Meds Nitrofurantoin [place]/Macrocryst [Macrobid] 100 mg PO BID 08/06/16 [History] Pnv No.122/Iron/Folic Acid [ Multi Tablet] 1 each PO DAILY 08/06/16 [ History] Acetaminophen [Tylenol] 650 mg PO Q6H PRN #0 tablet 08/09/16 [Rx] Benzocaine/Menthol [Dermoplast Pain Relief [place]] 1 spray TOP ASDIRECTED PRN #0 canister 08/09/16 [Rx] Docusate Sodium [Colace] 100 mg PO BID PRN #0 cap 08/09/16 [Rx] Ibuprofen [IJD: Ibuprofen] 200 - 600 mg PO Q6H PRN #0 tablet 08/09/16 [Rx] Simethicone 80 mg PO Q4H PRN #0 tab.chew 08/09/16 [Rx] Witmanny Merry [Tucks] 1 pad TOP ASDIRECTED PRN #0 pad 08/09/16 [Rx] - CURRENT (IN HOUSE) MEDS Current Meds: Current Medications Lactated Ringer's (Ringers, Lactated) 1,000 mls @ 125 mls/hr IV ASDIRECTED ARIANA Last Admin: 06/30/17 07:24 Dose: 125 mls/hr Sodium Chloride (Saline Flush) 10 ml FLUSH ASDIRECTED PRN PRN Reason: Keep Vein Open Discontinued Medications Bupivacaine HCl (Marcaine 0.5%) Confirm Administered Dose 30 ml .ROUTE .STK-MED ONE Stop: 06/30/17 07:08 Cefazolin Sodium (Ancef) Confirm Administered Dose 2 gm .ROUTE .STK-MED ONE Stop: 06/30/17 07:11 Citric Acid/Sodium Citrate (Bicitra Solution) 30 ml PO ONETIME ONE Stop: 06/30/17 05:18 Last Admin: 06/30/17 07:20 Dose: 30 ml Cefazolin Sodium/Dextrose 1 gm (/ Premix) 50 mls @ 100 mls/hr IV ONETIME ONE Stop: 06/30/17 07:19 Metoclopramide HCl (Reglan) 10 mg IVPUSH ONETIME ONE Stop: 06/30/17 05:18 Last Admin: 06/30/17 07:20 Dose: 10 mg Morphine Sulfate (Duramorph Pf) Confirm Administered Dose 10 mg .ROUTE .STK-MED ONE Stop: 06/30/17 07:17 Ondansetron HCl (Zofran) Confirm Administered Dose 4 mg .ROUTE .STK-MED ONE Stop: 06/30/17 07:11 Oxytocin (Pitocin) Confirm Administered Dose 20 unit .ROUTE .STK-MED ONE Stop: 06/30/17 07:11
[2017-06-30] MEDS ORDERED: Phenylephrine 1% 10 MG/ML SDV ONE (08:41)
[2017-06-30] MEDS ORDERED: Ketorolac 30 MG/ML SDV ONE (08:45)
[2017-06-30] MEDS ORDERED: Ondansetron 4 MG/2 ML SDV IVPUSH PRN (08:47)
[2017-06-30] MEDS ORDERED: diphenhydrAMINE 50 MG/ML SDV IVPUSH PRN ×2 (08:47→10:29)
[2017-06-30] MEDS ORDERED: fentaNYL 100 MCG/2 ML SDV IVPUSH PRN (08:47)
[2017-06-30] MEDS ORDERED: Meperidine PF 50 MG/ML Syringe IVPUSH PRN (08:47)
--- NOTE | 2017-06-30 08:47 | PCM.POSTAN ---
POST ANESTHESIA ASSESSMENT - MENTAL STATUS Mental Status: Alert, Oriented - VITAL SIGNS Pulse Rate: 78 SaO2: 97 Resp Rate: 13 Blood Pressure: 98/43 Temperature: 36.4 C - RESPIRATORY Respiratory Status: Respiratory Rate WNL, Airway Patent, O2 Saturation Stable, Supplemental Oxygen - CARDIOVASCULAR CV Status: Pulse Rate WNL, Blood Pressure Stable - GASTROINTESTINAL GI Status: No Symptoms - PAIN Pain Score: 0 - POST OP HYDRATION Hydration Status: Adequate & Stable
--- NOTE | 2017-06-30 08:54 | PCM.OPNOTE ---
- General Post-Op/Procedure Note Date of Surgery/Procedure: 06/30/17 Operative Procedure(s): Primary lower uterine segment transverse incision section through Pfannenstiel skin incision Findings: Monochorionic, diamniotic twin gestation with first baby in emelyn breech presentation, second baby vertex. Amniotic fluid in both sacs was normal in amount and clear. Uterus tubes and ovaries otherwise consistent with a term . Pre Op Diagnosis: 36-4/7 week intrauterine , monochorionic, diamniotic twins first baby breech. Post-Op Diagnosis: Same with delivery of viable male twin babies. Twin A Apgars 8/9, 6 lbs. 8 oz. at 0801 hrs. on 06/30/2017. Twin BApgars 7/9, 6 lbs. 6 oz. at 0801 hrs. on 06/30/2017 Anesthesia Technique: Spinal Other Anesthesia Type: Marcaine 0.5% local20 mL total Primary Surgeon: Barrington Peters Secondary Surgeon: Rosalino Kasper Anesthesia Provider: Armaan Flores Baker Pie: Miguel Graham Reason Baker Pie Was Necessary: Retraction, assistance, quality of care, patient safety Role of Baker Pie: Retraction, assistance Pathology: Twin placenta. Fluid Replacement, Intraop: 1,200 Output, Urine Amount: 50 EBL in mLs: 700 Complications: None Condition: Good Free Text/Narrative:: Intake & Output 06/29/17 06/30/17 06/30/17 22:59 06:59 14:59 Intake Total 1000 Balance 1000 Surgery duration: 37 minutes Procedure: Patient was transferred to the room and placed in a sitting position. Spinal anesthesia was administered. After confirmation of adequate anesthesia patient was placed in a supine position with a wedge under her right side to facilitate left lateral positioning. The patient was prepped and draped in usual fashion after Sams catheter was already placed . The anesthetic was checked and found to be adequate. 20 mL of Marcaine 0.5% was injected locally in the Pfannenstiel incision site. The Pfannenstiel skin incision was then made carried down to skin subcutaneous and fascial layers. The fascia was then undermined superiorly and inferiorly to allow for adequate operating room the recti muscles midline and preperitoneal fat was bluntly dissected. Peritoneal cavity was entered longitudinally. The vesicouterine peritoneum was then incised transversely and bladder flap was developed. Myometrium was incised transversely to the level of the amniotic sac. This incision was extended bilaterally in a blunt fashion. patient has a monochorionic, diamniotic twin gestation is first baby breech presentation. The lower amniotic sac was then ruptured resulting in clear amniotic fluid. A hand is placed in the low uterine segment and the baby's breech was brought forth through the incision. The baby was completely delivered using fundal pressure and complete breech extraction techniquein a routine fashion. The nose and mouth were bulb suctioned. Baby's cord was clamped x2 cut and baby was handed off to attending paraprofessional aide Dr maki. The sac of twin B was then ruptured with resulting clear amniotic fluid. Twin B was in a vertex presentation. The baby was delivered without problems using fundal pressure. Nose and mouth were bulb suctioned. Cord was clamped 2, cut and baby was handed off to attending paraprofessional aide Dr. Maki Placenta was expressed after cord blood was obtained. Uterus was then exteriorized to allow for easier closure. The cervix was assessed and found to be dilated adequately to allow egress of blood. The uterus was closed in 2 layers. The first layer a running locked suture of 0 Monocryl, the second layer a running locked vertical mattress suture of 0 Monocryl. [id number] suture was placed at the left incision to control 1 bleeder. Hemostasis confirmed at this time. Sponge instrument needle counts are correct. The uterus was returned to the abdominal cavity and lateral gutters were cleared of blood. Once again sponge needle counts are correct. The anterior abdominal wall was closed with a #1 PDS suture from angle to angle. The subcutaneous area was found to be free of any bleeders. interrupted sutures of 3-0 Monocryl were used to reapproximate the subcutaneous layer.Skin was closed with a running subcuticular stitch of 3-0 Monocryl in a vertical mattress suture fashion using a Theodore needle. Prineo mesh/glue was then applied to further approximate the incision. It should be noted that patient received 2 g of Ancef preoperatively for infection prophylaxis and had Pitocin infused after delivery of the placenta to facilitate uterine contraction. She also had sequential compression stockings in place for DVT prophylaxis. Patient was discharged from the operating room in satisfactory condition.
[2017-06-30] MEDS ORDERED: Ondansetron 4 MG/2 ML SDV IV PRN (10:29)
[2017-06-30] MEDS ORDERED: Dextrose 5%-Lactated Ringers 1,000 ML IV SCH (10:29)
[2017-06-30] MEDS ORDERED: ePHEDrine 50 MG/ML SDV IVPUSH PRN (10:29)
[2017-06-30] MEDS ORDERED: Naloxone 0.4 MG/ML SDV IVPUSH PRN (10:29)
[2017-06-30] MEDS: Simethicone 80 MG Tab.Chew PO SCH ×4 (13:08→22:34)
[2017-06-30] MEDS: Prenatal Multivitamin with Calcium/Folic Acid/Iron Tab PO SCH (14:42)
[2017-06-30] MEDS: Ibuprofen 800 MG Tab PO SCH ×2 (15:21→22:32)
[2017-07-01] MEDS: Ibuprofen 800 MG Tab PO SCH ×3 (06:59→22:25)
[2017-07-01] MEDS: Prenatal Multivitamin with Calcium/Folic Acid/Iron Tab PO SCH (09:13)
[2017-07-01] MEDS: Simethicone 80 MG Tab.Chew PO SCH ×5 (09:13→21:09)
[2017-07-01] MEDS: Docusate Sodium 100 MG Cap PO PRN ×2 (10:09→20:53)
[2017-07-01] MEDS: Acetaminophen/oxyCODONE 325-5 MG Tab PO PRN ×2 (10:09→20:53)
--- NOTE | 2017-07-01 15:05 | PCM.SN ---
- Free Text/Narrative Note: Postoperative day one she is doing well. Pain is adequately controlled patient is ambulating well. She is bottle feeding. Vital signs stable, patient is afebrile. Her lungs are clear with good breath sounds in all lung carreno. Cardiovascular exam shows regular rate and rhythShows incision intactAbdomen is soft, nontender. Incision is dry, intact without signs of infection, hematoma or seroma Legs are nontender. Minimal edema only. Assessment: 1. Postoperative day one 1. Plan: Increase diet, deep DC IV, patient may shower.
[2017-07-02] MEDS: Acetaminophen/oxyCODONE 325-5 MG Tab PO PRN ×3 (05:55→21:38)
[2017-07-02] MEDS: Ibuprofen 800 MG Tab PO SCH ×2 (07:47→14:06)
[2017-07-02] MEDS: Prenatal Multivitamin with Calcium/Folic Acid/Iron Tab PO SCH (09:13)
[2017-07-02] MEDS: Simethicone 80 MG Tab.Chew PO SCH ×4 (09:36→21:38)
[2017-07-03] MEDS: Ibuprofen 800 MG Tab PO SCH ×2 (01:04→06:54)
[2017-07-03] MEDS: Acetaminophen/oxyCODONE 325-5 MG Tab PO PRN ×4 (03:03→12:48)
--- NOTE | 2017-07-03 07:19 | PCM.DCSUM1 ---
Discharge Summary - Hospital Course Brief History: 26 year old s/p for twins. - Discharge Data Discharge Date: 07/03/17 Discharge Disposition: Home, Self-Care 01 Condition: Good - Patient Summary/Data Operative Procedure(s) Performed: Primary lower uterine segment transverse incision section through Pfannenstiel skin incision Hospital Course: for viable male twin babies. Twin AApgars 8/9, 6 lbs. 8 oz. at 0801 hrs. on 06/30/2017. Twin BApgars 7/9, 6 lbs. 6 oz. at 0801 hrs. on 06/30/2017 Unremarkable postoperative course. - Patient Instructions Diet: Usual Diet as Tolerated Activity: No Strenuous Activities Activity, Other: pelvic rest Driving: Do Not Drive Showering/Bathing: May Shower Wound/Incision Care: Keep Operative Site/Wound Site Clean and Dry Notify Provider of: Fever, Increased Pain, Swelling and Redness, Drainage, Nausea and/or Vomiting - Discharge Plan Home Medications: Home Meds Nitrofurantoin [place]/Macrocryst [Macrobid] 100 mg PO BID 08/06/16 [History] Pnv No.122/Iron/Folic Acid [ Multi Tablet] 1 each PO DAILY 08/06/16 [ History] Acetaminophen [Tylenol] 650 mg PO Q6H PRN #0 tablet 08/09/16 [Rx] Benzocaine/Menthol [Dermoplast Pain Relief [place]] 1 spray TOP ASDIRECTED PRN #0 canister 08/09/16 [Rx] Docusate Sodium [Colace] 100 mg PO BID PRN #0 cap 08/09/16 [Rx] Ibuprofen [IJD: Ibuprofen] 200 - 600 mg PO Q6H PRN #0 tablet 08/09/16 [Rx] Simethicone 80 mg PO Q4H PRN #0 tab.chew 08/09/16 [Rx] Witch Merry [Tucks] 1 pad TOP ASDIRECTED PRN #0 pad 08/09/16 [Rx] Referrals: Barrington Peters MD [Physician] - (2 weeks ) - Discharge Summary/Plan Comment DC Time >30 min.: No - General Info Date of Service: 07/03/17 Functional Status: Reports: Pain Controlled - Review of Systems General: Reports: No Symptoms HEENT: Reports: No Symptoms Pulmonary: Reports: No Symptoms Cardiovascular: Reports: No Symptoms Gastrointestinal: Reports: No Symptoms Genitourinary: Reports: No Symptoms Musculoskeletal: Reports: No Symptoms Skin: Reports: No Symptoms Neurological: Reports: No Symptoms Psychiatric: Reports: No Symptoms - Patient Data Vitals - Most Recent: Last Vital Signs Temp 36.1 C 07/03/17 03:06 Pulse 66 07/03/17 03:06 Resp 16 07/03/17 03:06 BP 117/72 07/03/17 03:06 Pulse Ox 99 07/03/17 03:06 Weight - Most Recent: 87.288 kg I&O - Last 24 hours: Intake & Output 07/02/17 07/03/17 07/03/17 22:59 06:59 14:59 Intake Total 240 Balance 240 Med Orders - Current: Current Medications Diphenhydramine HCl (Benadryl) 25 mg IVPUSH Q6H PRN PRN Reason: Itching or Nausea Docusate Sodium (Colace) 100 mg PO Q12H PRN PRN Reason: Constipation Last Admin: 07/01/17 20:53 Dose: 100 mg Ephedrine Sulfate (Ephedrine Sulfate) 5 mg IVPUSH SEECOMMENT PRN PRN Reason: Other Ibuprofen (Motrin) 800 mg PO Q8H [facility] Last Admin: 07/03/17 06:54 Dose: 800 mg Naloxone HCl (Narcan) 0.1 mg IVPUSH SEECOMMENT PRN PRN Reason: Respiratory Depression Ondansetron HCl (Zofran) 4 mg IV Q4H PRN PRN Reason: Nausea/Vomiting Oxycodone/Acetaminophen (Percocet 325-5 Mg) 2 tab PO Q4H PRN PRN Reason: Pain (moderate 4-6) Last Admin: 07/03/17 03:03 Dose: 2 tab Prenat Multivit/Safety Risk Lead/Iron/Folic Ac ( Plus Iron) 1 each PO DAILY [facility] Last Admin: 07/02/17 09:13 Dose: 1 each Simethicone (Simethicone) 80 mg PO PCBED [facility] Last Admin: 07/02/17 21:38 Dose: 80 mg Discontinued Medications Bupivacaine HCl (Marcaine 0.5%) Confirm Administered Dose 30 ml .ROUTE .STK-MED ONE Stop: 06/30/17 07:08 Last Admin: 06/30/17 07:59 Dose: 20 ml Cefazolin Sodium (Ancef) Confirm Administered Dose 2 gm .ROUTE .STK-MED ONE Stop: 06/30/17 07:11 Citric Acid/Sodium Citrate (Bicitra Solution) 30 ml PO ONETIME ONE Stop: 06/30/17 05:18 Last Admin: 06/30/17 07:20 Dose: 30 ml Diphenhydramine HCl (Benadryl) 25 mg IVPUSH Q6H PRN PRN Reason: Pruritis Stop: 06/30/17 11:00 Fentanyl (Sublimaze) 50 mcg IVPUSH Q5M PRN PRN Reason: Pain Stop: 06/30/17 11:00 Lactated Ringer's (Ringers, Lactated) 1,000 mls @ 125 mls/hr IV ASDIRECTED [facility] Last Admin: 06/30/17 07:24 Dose: 125 mls/hr Cefazolin Sodium/Dextrose 1 gm (/ Premix) 50 mls @ 100 mls/hr IV ONETIME ONE Stop: 06/30/17 07:19 Last Admin: 06/30/17 14:43 Dose: Not Given Dextrose/Lactated Ringer's (Dextrose 5%-Lactated Ringers) 1,000 mls @ 125 mls/ hr IV ASDIRECTED [facility] Stop: 06/30/17 18:28 Last Infusion: 06/30/17 14:05 Dose: Infused Ketorolac Tromethamine (Toradol) Confirm Administered Dose 30 mg .ROUTE .STK- MED ONE Stop: 06/30/17 08:46 Meperidine HCl (Demerol) 12.5 mg IVPUSH ONETIME PRN PRN Reason: Shivering Stop: 06/30/17 11:00 Metoclopramide HCl (Reglan) 10 mg IVPUSH ONETIME ONE Stop: 06/30/17 05:18 Last Admin: 06/30/17 07:20 Dose: 10 mg Morphine Sulfate (Duramorph Pf) Confirm Administered Dose 10 mg .ROUTE .STK-MED ONE Stop: 06/30/17 07:17 Ondansetron HCl (Zofran) Confirm Administered Dose 4 mg .ROUTE .STK-MED ONE Stop: 06/30/17 07:11 Ondansetron HCl (Zofran) 4 mg IVPUSH ONETIME PRN PRN Reason: Nausea/Vomiting Stop: 06/30/17 11:00 Oxytocin (Pitocin) Confirm Administered Dose 20 unit .ROUTE .STK-MED ONE Stop: 06/30/17 07:11 Phenylephrine HCl (Isael-Synephrine) Confirm Administered Dose 10 mg .ROUTE .STK- MED ONE Stop: 06/30/17 08:42 Sodium Chloride (Saline Flush) 10 ml FLUSH ASDIRECTED PRN PRN Reason: Keep Vein Open - Exam General: Reports: Alert, Oriented HEENT: Reports: Pupils Equal, Pupils Reactive, EOMI, Mucous Membr. Moist/[place] Neck: Reports: Supple Lungs: Reports: Normal Respiratory Effort Cardiovascular: Reports: Regular Rate GI/Abdominal Exam: Normal Bowel Sounds, Soft, Non-Tender, No Organomegaly, No Distention, No Abnormal Bruit, No Mass, Pelvis Stable (Female) Exam: Normal External Exam, Normal Speculum Exam, Normal Bimanual Exam Rectal (Female) Exam: Normal Exam, Normal Rectal Tone Back Exam: Reports: Normal Inspection, Full Range of Motion Extremities: Normal Inspection, Normal Range of Motion, Non-Tender, No Pedal Edema, Normal Capillary Refill Skin: Reports: Warm, Dry, Intact Wound/Incisions: Reports: Healing Well Neurological: Reports: No New Focal Deficit Psy/Mental Status: Reports: Alert, Normal Affect, Normal Mood
[2017-07-03] MEDS: Prenatal Multivitamin with Calcium/Folic Acid/Iron Tab PO SCH (08:34)
[2017-07-03] MEDS: Simethicone 80 MG Tab.Chew PO SCH (08:34)
[2017-07-03 14:06] VITALS: BP 102/58
== END 2017-07-03 13:50 | disposition home or self-care (01) | DRG 540 ==
LOC: JD.OB 05:01 → UNDOADMIN 05:01
PROVIDERS: ADMIT Obstetrics & Gynecology; ATTEND Obstetrics & Gynecology
PROC: 10D00Z1 Extraction of Products of Conception, Low, Open Approach (ICD-10-PCS; principal; 2017-06-30)
PROC: 10907ZC Drainage of Amniotic Fluid, Therapeutic from Products of Conception, Via Natural or Artificial Opening (ICD-10-PCS; 2017-06-30)
DX: O32.1XX1 Maternal care for breech presentation, fetus 1 (principal); O30.033 Twin pregnancy, monochorionic/diamniotic, third trimester; Z3A.36 36 weeks gestation of pregnancy; Z37.2 Twins, both liveborn
CPT/HCPCS: 01961; 36415; 59025; 85025; 94762; A9270-GY; J0690; J1885; J2270; J2370; J2405; J2590; J2765; J7042; J7120

== ENCOUNTER 2017-09-20 13:12 | Emergency (ER) | payer BC ==
[2017-09-20 13:23] VITALS: BP 102/67
--- NOTE | 2017-09-20 14:31 | EDM.PDOC ---
ED HPI GENERAL MEDICAL PROBLEM - General Chief Complaint: Chest Pain Stated Complaint: CHEST PAIN Time Seen by Provider: 09/20/17 13:17 Source of Information: Reports: Patient History Limitations: Reports: No Limitations - History of Present Illness INITIAL COMMENTS - FREE TEXT/NARRATIVE: The patient presents with chest pain. This started over a month ago. The pain is in the upper middle chest. She says it is sharp at times. It comes and goes. Movement makes it worse. She has no fever or chills. She will feel short of breath at times. She has no edema or pain in her legs. She has no history of DVT or PE. She delivered twins a few months ago. She does not smoke. She has no history of heart desease, diagetes, HTN or high cholesterol. Onset: Gradual Duration: Week(s): Location: Reports: Chest Quality: Reports: Sharp Severity: Mild Improves with: Reports: Immobilization Worsens with: Reports: Movement Context: Reports: Activity Associated Symptoms: Reports: Chest Pain, Shortness of Breath. Denies: Fever/ Chills, Headaches, Nausea/Vomiting Upper Chest Pain Score (Numeric/FACES): 6 - Related Data Allergies Allergy/AdvReac Type Severity Reaction Status Date / Time No Known Allergies Allergy Verified 09/20/17 13:23 Home Meds: Home Meds . 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: - Past Surgical History Female Surgical History: Reports: Section Social & Family History - Family History Family Medical History: Noncontributory - Tobacco Use Smoking Status *Q: Never Smoker - Caffeine Use Caffeine Use: Reports: Coffee Other Caffeine Use: 2 per day - Recreational Drug Use Recreational Drug Use: No ED ROS GENERAL - Review of Systems Review Of Systems: See Below Constitutional: Reports: No Symptoms HEENT: Reports: No Symptoms Respiratory: Reports: Shortness of Breath Cardiovascular: Reports: Chest Pain Endocrine: Reports: No Symptoms GI/Abdominal: Reports: No Symptoms : Reports: No Symptoms Musculoskeletal: Reports: No Symptoms Skin: Reports: No Symptoms ED EXAM, GENERAL - Physical Exam Exam: See Below Exam Limited By: No Limitations General Appearance: Alert, No Apparent Distress Ears: Normal External Exam Nose: Normal Inspection Head: Atraumatic, Normocephalic Neck: Normal Inspection Respiratory/Chest: No Respiratory Distress, Lungs Clear, Normal Breath Sounds Cardiovascular: Regular Rate, Rhythm, No Edema, No Murmur GI/Abdominal: Soft, Non-Tender, No Organomegaly, No Mass Back Exam: Normal Inspection Extremities: Normal Inspection Course - Vital Signs Last Recorded V/S: Last Vital Signs Temp 98.7 F 09/20/17 13:19 Pulse 88 09/20/17 13:19 Resp 17 09/20/17 13:19 BP 102/67 09/20/17 13:19 Pulse Ox 97 09/20/17 13:19 - Orders/Labs/Meds Orders: Active Orders 24 hr Category Date Time Status Cardiac Monitoring [RC] . DIRECTED Care 09/20/17 13:33 Active EKG Documentation Completion [RC] STAT Care 09/20/17 13:33 Active Chest 2V [CR] Stat Exams 09/20/17 13:34 Taken COMPREHENSIVE METABOLIC PN,CMP [CHEM] Stat Lab 09/20/17 14:03 Received TROPONIN I [CHEM] Stat Lab 09/20/17 14:03 Received Labs: Laboratory Tests 09/20/17 09/20/17 Range/Units 14:03 14:03 WBC 7.93 (3.98-10.04) K/mm3 RBC 4.50 (3.98-5.22) M/mm3 Hgb 12.1 (11.2-15.7) gm/L Hct 36.5 (34.1-44.9) % MCV 81.1 (79.4-94.8) fl MCH 26.9 (25.6-32.2) pg MCHC 33.2 (32.2-35.5) g/dl RDW Std Deviation 42.1 (36.4-46.3) fL Plt Count 170 L (182-369) K/mm3 MPV 11.8 (9.4-12.3) fl Neut % (Auto) 70.1 (34.0-71.1) % Lymph % (Auto) 19.9 (19.3-51.7) % [place] % (Auto) 8.6 (4.7-12.5) % Eos % (Auto) 1.0 (0.7-5.8) Baso % (Auto) 0.3 (0.1-1.2) % Neut # (Auto) 5.56 (1.56-6.13) K/mm3 Lymph # (Auto) 1.58 (1.18-3.74) K/mm3 [place] # (Auto) 0.68 H (0.24-0.36) K/mm3 Eos # (Auto) 0.08 (0.04-0.36) K/mm3 Baso # (Auto) 0.02 (0.01-0.08) K/mm3 D-Dimer, Quantitative 0.35 (0.19-0.50) mg/L - Re-Assessments/Exams Free Text/Narrative Re-Assessment/Exam: 09/20/17 14:37 Her EKG shows a NSR with no acute changes. Her CXR shows nothing acute. Her CBC and labs look good. It appears to be pleurisy. I will have her take some antiinflammatories. Departure - Departure Time of Disposition: 14:40 Disposition: Home, Self-Care 01 Condition: Good Clinical Impression: Pleurisy Referrals: PCP,None [Primary Care Provider] - Forms: ED Department Discharge Additional Instructions: Take motrin or aleve for the pain. Follow up with your doctor in a couple of weeks. Please return if you are worse. - My Orders Last 24 Hours: My Active Orders 09/20/17 13:33 Cardiac Monitoring [RC] . DIRECTED EKG Documentation Completion [RC] STAT 09/20/17 13:34 Chest 2V [CR] Stat 09/20/17 14:03 COMPREHENSIVE METABOLIC PN,CMP [CHEM] Stat TROPONIN I [CHEM] Stat - Assessment/Plan Last 24 Hours: My Active Orders 09/20/17 13:33 Cardiac Monitoring [RC] . DIRECTED EKG Documentation Completion [RC] STAT 09/20/17 13:34 Chest 2V [CR] Stat 09/20/17 14:03 COMPREHENSIVE METABOLIC PN,CMP [CHEM] Stat TROPONIN I [CHEM] Stat
--- NOTE | 2017-09-22 08:30 | CR ---
Chest: Two views of the chest were obtained. Comparison: No prior chest x-ray. Heart size and mediastinum are normal. Lungs are clear. Bony structures appear within normal limits. Impression: 1. Nothing acute is seen on two-view chest x-ray. Diagnostic code #1
== END 2017-09-20 14:49 | disposition home or self-care (01) ==
LOC: JD.ED 13:12
DX: R09.1 Pleurisy (principal)
CPT/HCPCS: 36415; 71046; 71046-26; 80053; 84484; 85025; 85379; 93005; 93010; 99284-25; 99285-25

== ENCOUNTER 2017-12-18 02:31 | Emergency (ER) | payer OTHER ==
--- NOTE | 2017-12-18 02:53 | EDM.PDOC ---
ED HPI GENERAL MEDICAL PROBLEM - General Chief Complaint: WINTER INTERN Problem Stated Complaint: [facility] Time Seen by Provider: 12/18/17 02:47 Source of Information: Reports: Patient History Limitations: Reports: No Limitations - History of Present Illness INITIAL COMMENTS - FREE TEXT/NARRATIVE: This is a 27-year-old female. She is a patient of Dr. Cabral and she is approximately 13 weeks by dates. Apparently she got an ultrasound yesterday here at [facility] that showed a gestational sac that was empty and the dates were 7 weeks. This evening around 9:30 she had onset of bleeding and she lives in [place] and went to the ER in [place]. The doctor there gave her medications for her cramping and did a pelvic exam that showed blood clots and give her medications to help with the cramping. A CBC was obtained at that time showed a hemoglobin of 11.2 and a hematocrit of 32.5. Apparently she continued to bleed and have cramping and Dr. Gaytan spoke to the OB doctor modeling and simulation analyst Dr. Sullivan and the story gets confusing since Dr. Gaytan felt like Dr. Sullivan agreed to accept the patient in transport but Dr. Sullivan indicates that she said that the patient can stay in [place] and be watched and if things progressively worsened or the hemoglobin begans to drop then to send her to [place]. The patient was sent to us but there is no second CBC done to know if there is a drop in hemoglobin. Much of her bleeding has eased up now according to the patient and her cramping is better. He is a 3 para 3 she had twins abortive one. Bilateral Lower Abdomen Pain Score (Numeric/FACES): 7 - Related Data Allergies Allergy/AdvReac Type Severity Reaction Status Date / Time No Known Allergies Allergy Verified 12/18/17 02:39 Home Meds: Home Meds . [No Known Home Meds] 09/20/17 [History] Past Medical History - Past Health History Medical/Surgical History: Denies Medical/Surgical History Gastrointestinal History: Reports: GERD WINTER INTERN History: Reports: Other WINTER INTERN History: Patient states she is - Past Surgical History Female Surgical History: Reports: Section Social & Family History - Family History Family Medical History: Noncontributory - Tobacco Use Smoking Status *Q: Never Smoker - Caffeine Use Caffeine Use: Reports: Tea Other Caffeine Use: 2 per day - Recreational Drug Use Recreational Drug Use: No ED ROS GENERAL - Review of Systems Review Of Systems: See Below Constitutional: Denies: Fever, Chills HEENT: Reports: No Symptoms Respiratory: Reports: No Symptoms Cardiovascular: Reports: No Symptoms Endocrine: Reports: No Symptoms GI/Abdominal: Reports: Abdominal Pain. Denies: Nausea, Vomiting : Reports: No Symptoms Musculoskeletal: Reports: No Symptoms Skin: Reports: No Symptoms Neurological: Reports: No Symptoms Psychiatric: Reports: No Symptoms Hematologic/Lymphatic: Reports: No Symptoms ED EXAM - Physical Exam Exam: See Below Exam Limited By: No Limitations General Appearance: Alert, WD/WN, No Apparent Distress Eye Exam: Bilateral Eye: Normal Inspection Ears: Normal External Exam Nose: Nasal Deformity Throat/Mouth: Normal Inspection, Normal Lips, Normal Voice, No Airway Compromise Head: Normocephalic Neck: Supple Respiratory/Chest: No Respiratory Distress, Lungs Clear, Normal Breath Sounds Cardiovascular: Regular Rate, Rhythm, No Murmur GI/Abdominal Exam: Soft, Other (Mild lower abdominal tenderness on palpation over the uterus but no upper abdominal tenderness noted) (Female) Exam: Other (Vaginal exam was deferred until after the ultrasound) Back Exam: Full Range of Motion Extremities: Normal Inspection, Normal Range of Motion Neurological: Alert, Oriented Psychiatric: Normal Affect, Normal Mood Skin Exam: Warm, Dry Course - Vital Signs Last Recorded V/S: Last Vital Signs Temp 97.3 F 12/18/17 02:37 Pulse 70 12/18/17 02:37 Resp 18 12/18/17 02:37 BP 109/67 12/18/17 02:37 Pulse Ox 97 12/18/17 02:37 - Orders/Labs/Meds Orders: Active Orders 24 hr Category Date Time Status OB Ltd 1 or More Fetus [US] Stat Exams 12/18/17 02:47 Stop Req OB Transvaginal [US] Stat Exams 12/18/17 03:20 Taken Labs: Laboratory Tests 12/18/17 12/18/17 Range/Units 03:00 03:00 WBC 13.06 H (3.98-10.04) K/mm3 RBC 3.77 L (3.98-5.22) M/mm3 Hgb 10.2 L (11.2-15.7) gm/L Hct 30.8 L (34.1-44.9) % MCV 81.7 (79.4-94.8) fl MCH 27.1 (25.6-32.2) pg MCHC 33.1 (32.2-35.5) g/dl RDW Std Deviation 44.5 (36.4-46.3) fL Plt Count 160 L (182-369) K/mm3 MPV 12.0 (9.4-12.3) fl Neut % (Auto) 91.4 H (34.0-71.1) % Lymph % (Auto) 5.1 L (19.3-51.7) % [place] % (Auto) 3.2 L (4.7-12.5) % Eos % (Auto) 0 L (0.7-5.8) Baso % (Auto) 0.1 (0.1-1.2) % Neut # (Auto) 11.93 H (1.56-6.13) K/mm3 Lymph # (Auto) 0.67 L (1.18-3.74) K/mm3 [place] # (Auto) 0.42 H (0.24-0.36) K/mm3 Eos # (Auto) 0.00 L (0.04-0.36) K/mm3 Baso # (Auto) 0.01 (0.01-0.08) K/mm3 Manual Slide Review Abnormal smear HCG, Quant 1902.0 mIU/mL - Radiology Interpretation Free Text/Narrative:: Ultrasound shows a thickened inhomogeneity within the endometrium but there is no evidence of a pole or yolk sac. So it looks like all products of conception have passed. - Re-Assessments/Exams Free Text/Narrative Re-Assessment/Exam: 12/18/17 05:08 I spoke to the patient regarding the ultrasound results. Also that her hemoglobin was down to 10.2. We're going to get her up and walk to the bathroom make sure there is no gush of blood since she states that the bleeding has almost stopped completely. I did speak to Dr. Sullivan and she does not feel at this time as long as she is slow down the bleeding that she needs any particular medications for the uterus tetany. The patient will follow up with her regular OB doctor this coming week for recheck or she may call the OB department if she has any questions. 12/18/17 05:21 The nurse got the patient up and walked her around to the bathroom there was no gush of blood. She is not feeling dizzy. She states she is ready to go home. I spoke to her regarding no need for medications from the OB doctor since her bleeding has essentially stopped though she will continue to have some minor bleeding. Departure - Departure Time of Disposition: 05:21 Disposition: Home, Self-Care 01 Condition: Good Clinical Impression: Complete miscarriage - Discharge Information *PRESCRIPTION DRUG MONITORING PROGRAM REVIEWED*: Not Applicable *COPY OF PRESCRIPTION DRUG MONITORING REPORT IN PATIENT CASSIDY: Not Applicable Referrals: Nigel Rutledge MD [Physician] - Forms: ED Department Discharge Additional Instructions: Rest with gentle activity over the next 48 hours, if there are problems call the OB department here at the hospital or give your OB doctor a call, make sure you call your OB doctor on Wednesday regarding the events over the weekend, if there is marked worsening or marked increased bleeding return to the ER - My Orders Last 24 Hours: My Active Orders 12/18/17 02:47 OB Ltd 1 or More Fetus [US] Stat 12/18/17 03:20 OB Transvaginal [US] Stat - Assessment/Plan Last 24 Hours: My Active Orders 12/18/17 02:47 OB Ltd 1 or More Fetus [US] Stat 12/18/17 03:20 OB Transvaginal [US] Stat
[2017-12-18 05:26] VITALS: BP 100/67
--- NOTE | 2017-12-20 07:13 | US ---
First trimester obstetrical ultrasound: Multiple real-time images were obtained transvaginally. Findings: Thickened and inhomogeneous endometrium is seen with cystic area containing no yolk sac or gestational sac. Fluid is seen within the endocervical canal. Maternal ovaries appear within normal limits. No free fluid is seen. Impression: 1. Thickened and inhomogeneous endometrium with irregular cystic area. Difficult to exclude blood clot. No evidence of normal . 2. Fluid within the endocervical canal most likely due to blood. Diagnostic code #3 I agree with preliminary report from [facility], finalized on 12/18/17, 5:54 AM Central Time
== END 2017-12-18 05:45 | disposition home or self-care (01) ==
LOC: JD.ED 02:31
DX: O03.9 Complete or unspecified spontaneous abortion without complication (principal)
CPT/HCPCS: 36415; 76817; 76817-26; 84702; 85025; 99284; 99285-25

== ENCOUNTER 2017-12-24 07:07 | Day surgery (SDC) | payer OTHER ==
[~2017-12-24 07:07] MED LIST: Lactated Ringers 1,000 ML IV SCH; Lidocaine 1%/Sod Bicarbonate in NS 8.4% 1 ML Syringe IDERM PRN; Sodium Chloride 0.9% 10 ML Syringe FLUSH PRN
--- NOTE | 2017-12-24 08:13 | PCM.PREANE ---
Preanesthetic Assessment - Anesthesia/Transfusion/Family Hx Anesthesia History: Prior Anesthesia Without Reaction Family History of Anesthesia Reaction: No Transfusion History: No Prior Transfusion(s) - Review of Systems General: No Symptoms Pulmonary: No Symptoms, Other (Former smoker, None for 2-3 years per patient. ) Cardiovascular: No Symptoms Gastrointestinal: No Symptoms Neurological: No Symptoms Other: Reports: Depression - Physical Assessment NPO Status Date: 12/23/17 NPO Status Time: 21:00 O2 Sat by Pulse Oximetry: 94 Respiratory Rate: 16 Vital Signs: Last Vital Signs Temp 36.1 C 12/24/17 07:20 Pulse 71 12/24/17 07:20 Resp 16 12/24/17 07:20 BP 96/56 L 12/24/17 07:20 Pulse Ox 94 L 12/24/17 07:20 Height: 1.6 m Weight: 82.1 kg ASA Class: 1 Mental Status: Alert & Oriented x3 Airway Class: Mallampati = 1 Dentition: Reports: Normal Dentition Thyro-Mental Finger Breadths: 3 Mouth Opening Finger Breadths: 3 ROM/Head Extension: Full Lungs: Clear to Auscultation, Normal Respiratory Effort Cardiovascular: Regular Rate, Regular Rhythm - Allergies Allergies/Adverse Reactions: Allergies Allergy/AdvReac Type Severity Reaction Status Date / Time No Known Allergies Allergy Verified 12/24/17 08:09 - Acknowledgements Anesthesia Type Planned: MAC Pt an Appropriate Candidate for the Planned Anesthesia: Yes Alternatives and Risks of Anesthesia Discussed w Pt/Guardian: Yes Pt/Guardian Understands and Agrees with Anesthesia Plan: Yes PreAnesthesia Questionnaire - Past Health History Medical/Surgical History: Denies Medical/Surgical History Gastrointestinal History: Reports: GERD 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: , 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 Other OB/BYN History: Patient states she is Psychiatric History: Reports: Depression - Past Surgical History Female Surgical History: Reports: Section Musculoskeletal Surgical History: Reports: Other (See Below) Other Musculoskeletal Surgeries/Procedures:: 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 - SUBSTANCE USE Smoking Status *Q: Never Smoker Recreational Drug Use History: No - HOME MEDS Home Medications: Home Meds buPROPion [buPROPion XL] 150 mg PO DAILY 12/23/17 [History] - CURRENT (IN HOUSE) MEDS Current Meds: Current Medications Lactated Ringer's (Ringers, Lactated) 1,000 mls @ 125 mls/hr IV ASDIRECTED ARIANA Stop: 12/24/17 21:00 Last Admin: 12/24/17 07:40 Dose: 125 mls/hr Lidocaine/Sodium Bicarbonate (Buffered Lidocaine 1% In Ns 8.4%) 0.25 ml IDERM ONETIME PRN PRN Reason: Prior to IV Start Stop: 12/24/17 18:00 Sodium Chloride (Saline Flush) 10 ml FLUSH ASDIRECTED PRN PRN Reason: Keep Vein Open Stop: 12/24/17 18:00
[2017-12-24] MEDS ORDERED: Ondansetron 4 MG/2 ML SDV ONE (08:48)
[2017-12-24] MEDS ORDERED: Rocuronium 50 MG/5 ML Vial ONE (08:48)
[2017-12-24] MEDS ORDERED: Propofol 200 MG/20 ML SDV ONE (08:48)
[2017-12-24] MEDS ORDERED: Lidocaine 1% 4 ML ONE (08:49)
[2017-12-24] MEDS ORDERED: ceFAZolin 1 GM Vial ONE (08:49)
[2017-12-24] MEDS ORDERED: Midazolam 1 MG/ML 2 ML SDV ONE (08:49)
[2017-12-24] MEDS ORDERED: fentaNYL 100 MCG/2 ML SDV ONE (08:49)
[2017-12-24] MEDS ORDERED: Lactated Ringers 1,000 ML ONE (08:59)
[2017-12-24] MEDS ORDERED: Ketorolac 30 MG/ML SDV ONE (09:19)
[2017-12-24] MEDS ORDERED: Ondansetron 4 MG/2 ML SDV IVPUSH PRN ×2 (09:21→09:52)
--- NOTE | 2017-12-24 09:24 | PCM.OPNOTE ---
- General Post-Op/Procedure Note Date of Surgery/Procedure: 12/24/17 Operative Procedure(s): Dilation and suction curettage Findings: Uterus sounded to 12 cm. Tissue present within the endometrial cavity consistent with products of conception. Cervix already was dilated to approximately 12 mm. No adnexal abnormalities noted. Findings consistent with an incomplete spontaneous . Pre Op Diagnosis: Incomplete spontaneous Post-Op Diagnosis: Same Anesthesia Technique: General ET Tube Primary Surgeon: Barrington Peters Fluid Replacement, Intraop: 1,600 EBL in mLs: 100 Complications: None Condition: Good Free Text/Narrative:: Surgery duration: 2 minutes Procedure: The patient was taken to the operating room and placed in a supine position operating table. She received 2 g of Ancef preoperatively for infection prophylaxis and had sequential compression stockings in place for DVT prophylaxis. After adequate general and tracheal anesthesia patient was placed in a dorsal lithotomy position. A weighted speculum was placed in the vagina. Cervix is found to be dilated to approximately 1.2 centimeters. Uterus was sounded to approximately 12 cm. It was found to be anterior and mid position. An 8 mm suction curette was then introduced in routine fashion the endometrial cavity was evacuated. Moderate amount tissue was obtained. Findings consistent with products of conception. A medium size sharp curet was introduced and very careful fashion the endometrial cavity was curetted. It was be clear of any further tissue. The suction curet was then reintroduced and small and blood was removed. No further tissue was removed. This point the D&C was discontinued. The single-toothed tenaculum used to stabilize the anterior lip the cervix was removed. Blood was removed from the vagina with a stick sponge and the weighted speculum was removed from the vagina. The patient was awakened from LMA anesthesia. The patient was discharged from the operating room in good condition.
[2017-12-24] MEDS ORDERED: Neostigmine Methylsulfate 1 MG/ML 5 ML Syringe ONE ×2 (09:25→09:37)
[2017-12-24] MEDS ORDERED: Ketorolac 30 MG/ML SDV IVPUSH SCH (09:30)
[2017-12-24] MEDS ORDERED: LORazepam 2 MG/ML SDV ONE (09:48)
[2017-12-24] MEDS ORDERED: LORazepam 2 MG/ML SDV IVPUSH ONE (09:48)
--- NOTE | 2017-12-24 09:54 | PCM.POSTAN ---
POST ANESTHESIA ASSESSMENT - MENTAL STATUS Mental Status: Alert, Oriented - VITAL SIGNS Pulse Rate: 118 SaO2: 98 Resp Rate: 13 Blood Pressure: 106/54 Temperature: 36.7 C - RESPIRATORY Respiratory Status: Respiratory Rate WNL, Airway Patent, O2 Saturation Stable, Supplemental Oxygen - CARDIOVASCULAR CV Status: Pulse Rate WNL, Blood Pressure Stable - GASTROINTESTINAL GI Status: No Symptoms - PAIN Pain Score: 0 - POST OP HYDRATION Hydration Status: Adequate & Stable - OBSERVATIONS Free Text/Narrative:: no anesthesia complications noted
[2017-12-24] MEDS ORDERED: Methylergonovine 0.2 MG/1 ML Amp IM ONE (12:55)
[2017-12-24 14:23] VITALS: BP 96/45
== END 2017-12-24 14:15 | disposition home or self-care (01) ==
LOC: JD.SDS 07:07
PROVIDERS: ATTEND Obstetrics & Gynecology
DX: O03.4 Incomplete spontaneous abortion without complication (principal); O99.341 Other mental disorders complicating pregnancy, first trimester; F32.9 Major depressive disorder, single episode, unspecified; O99.619 Diseases of the digestive system complicating pregnancy, unspecified trimester; K21.9 Gastro-esophageal reflux disease without esophagitis; Z87.891 Personal history of nicotine dependence
CPT/HCPCS: 36415; 59812; 80048; J0690; J1885; J2060; J2210; J2250; J2405; J2704; J2710; J3010; J7120; 01965; 88305; J2001

== ENCOUNTER 2020-03-19 05:39 | Inpatient (IN) | payer BC, MEDICAID ==
--- NOTE | 2020-03-14 09:40 | PCM.LDHP ---
L&D History of Present Illness - General Date of Service: 03/14/20 Admit Problem/Dx: Admission Diagnosis/Problem Admission Diagnosis/Problem Source of Information: Patient History Limitations: Reports: No Limitations - History of Present Illness Introduction:: 29-year-old -0-1-4 TEMO 03/25/2020 scheduled for repeat section on 03/19/2020 at estimated gestational age of 39 weeks and 1 day. Patient has had 3 prior sections. 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 Hemoglobin/hematocrit 13.4/39.9. Platelets 183,000. Rubella immune. Serology nonreactive. Initial urine culture 70-80,000 colony count E. coli treated. Hepatitis B surface antigen and HIV were negative. GC and Chlamydia probe negative. 01/04/2020 hemoglobin/hematocrit 12.1/36.6 platelets 152,000. 1 hour OB glucose screen 99. 02/28/2020 group B strep negative. No known drug allergies. Improves with: Reports: None Worsens with: Reports: None Associated Symptoms: Reports: N - Related Data Allergies/Adverse Reactions: Allergies Allergy/AdvReac Type Severity Reaction Status Date / Time No Known Allergies Allergy Verified 10/18/18 05:07 Home Medications: Home Meds Vit/FA/Fe Fumarate/Se [ MTR] 1 tab PO DAILY 10/17/18 [History] Acetaminophen [Tylenol] 650 mg PO Q6H PRN tablet 10/20/18 [Rx] Acetaminophen/oxyCODONE [Percocet 325-5 MG] 1 tab PO Q6H PRN #20 tablet 10/20/18 [Rx] Docusate Sodium [Colace] 100 mg PO Q12H PRN cap 10/20/18 [Rx] Ibuprofen [Motrin] 200 - 600 mg PO Q6H PRN tablet 10/20/18 [Rx] Simethicone 80 mg PO PCBED tab.chew 10/20/18 [Rx] Past Medical History - Past Health History Medical/Surgical History: Denies Medical/Surgical History Gastrointestinal History: Reports: GERD [employer]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: , 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 Other OB/BYN History: Patient states she is Psychiatric History: Reports: Depression 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 Social & Family History - Family History Family Medical History: No Pertinent Family History - Caffeine Use Caffeine Use: Reports: Tea Other Caffeine Use: 2 per day H&P Review of Systems - Review of Systems: Review Of Systems: See Below General: Reports: No Symptoms HEENT: Reports: No Symptoms Pulmonary: Reports: No Symptoms Cardiovascular: Reports: No Symptoms Gastrointestinal: Reports: No Symptoms Genitourinary: Reports: No Symptoms Musculoskeletal: Reports: No Symptoms Skin: Reports: No Symptoms Psychiatric: Reports: No Symptoms Neurological: Reports: No Symptoms Hematologic/Lymphatic: Reports: No Symptoms Immunologic: Reports: No Symptoms L&D Exam - Exam Exam: See Below - OB Specific Fundal Height In cm: 37 Movement: Active Heart Tones: Present Heart Tones per Min: 140 Heart Rate (FHR) Variability: Moderate (6-25 bmp) Presentation: Vertex - Exam General: Alert, Oriented HEENT: Conjunctiva Clear, Mucosa Moist & [place] Neck: Supple, Trachea Midline Lungs: Clear to Auscultation, Normal Respiratory Effort Cardiovascular: Regular Rate, Regular Rhythm GI/Abdominal Exam: Normal Bowel Sounds, Soft, Non-Tender Genitourinary: Normal external exam Extremities: Normal Inspection, Non-Tender, No Pedal Edema, Normal Capillary Refill Skin: Warm, Dry, Intact Psychiatric: Alert, Normal Affect, Normal Mood - Problem List (1) History of delivery SNOMED Code(s): 322766907 ICD Code: Z98.891 - HISTORY OF UTERINE SCAR FROM PREVIOUS SURGERY Status: Acute (2) History of delivery affecting SNOMED Code(s): 513778940, 706318116 ICD Code: O34.219 - MATERNAL CARE FOR UNSP TYPE SCAR FROM PREVIOUS DEL Status: Acute (3) 39 weeks gestation of SNOMED Code(s): 58907787 ICD Code: Z3A.39 - 39 WEEKS GESTATION OF Status: Acute Problem List Initiated/Reviewed/Updated: No Assessment/Plan Comment:: Plan repeat section 03/19/2020.
[~2020-03-19 05:39] MED LIST changes: +Citric Acid/Sodium Citrate Solution 30 ML Cup PO ONE; -Lactated Ringers 1,000 ML IV SCH; -Lidocaine 1%/Sod Bicarbonate in NS 8.4% 1 ML Syringe IDERM PRN; +Metoclopramide 10 MG/2 ML SDV IVPUSH ONE
[2020-03-19] MEDS: Lactated Ringers 1,000 ML IV SCH ×2 (06:13→06:49)
[2020-03-19] MEDS ORDERED: Citric Acid/Sodium Citrate Solution 30 ML Cup ONE (06:46)
[2020-03-19] MEDS ORDERED: Oxytocin 10 Units/1 ML SDV ONE ×2 (06:50→08:24)
[2020-03-19] MEDS ORDERED: Morphine PF 10 MG/10 ML SDV ONE (06:50)
[2020-03-19] MEDS ORDERED: fentaNYL 100 MCG/2 ML SDV ONE (06:50)
[2020-03-19] MEDS ORDERED: ceFAZolin 1 GM Vial ONE (06:57)
[2020-03-19] MEDS ORDERED: Bupivacaine 0.5% 30 ML SDV ONE (07:13)
--- NOTE | 2020-03-19 07:21 | PCM.PREANE ---
Preanesthetic Assessment - Procedure Proposed Procedure: Repeat - Anesthesia/Transfusion/Family Hx Anesthesia History: Prior Anesthesia Without Reaction Transfusion History: Prior Transfusion Without Reaction Intubation History: Unknown - Review of Systems General: No Symptoms Pulmonary: No Symptoms Cardiovascular: No Symptoms Gastrointestinal: No Symptoms Neurological: No Symptoms Other: Reports: None - Physical Assessment NPO Status Date: 03/18/20 NPO Status Time: 21:00 Height: 1.63 m Weight: 89.675 kg ASA Class: 2 Mental Status: Alert & Oriented x3 Dentition: Reports: Normal Dentition Thyro-Mental Finger Breadths: 3 Mouth Opening Finger Breadths: 3 ROM/Head Extension: Full Lungs: Clear to Auscultation, Normal Respiratory Effort Cardiovascular: Regular Rate, Regular Rhythm - Lab Values: Laboratory Last Values WBC 9.39 K/mm3 (3.98-10.04) 03/19/20 06:21 RBC 3.95 M/mm3 (3.98-5.22) L 03/19/20 06:21 Hgb 11.1 gm/dl (11.2-15.7) L 03/19/20 06:21 Hct 34.4 % (34.1-44.9) 03/19/20 06:21 MCV 87.1 fl (79.4-94.8) 03/19/20 06:21 MCH 28.1 pg (25.6-32.2) 03/19/20 06:21 MCHC 32.3 g/dl (32.2-35.5) 03/19/20 06:21 RDW Std Deviation 44.0 fL (36.4-46.3) 03/19/20 06:21 Plt Count 117 K/mm3 (182-369) L 03/19/20 06:21 MPV 11.8 fl (9.4-12.3) 03/19/20 06:21 Neut % (Auto) 76.0 % (34.0-71.1) H 03/19/20 06:21 Lymph % (Auto) 14.2 % (19.3-51.7) L 03/19/20 06:21 [place] % (Auto) 8.5 % (4.7-12.5) 03/19/20 06:21 Eos % (Auto) 0.9 (0.7-5.8) 03/19/20 06:21 Baso % (Auto) 0.1 % (0.1-1.2) 03/19/20 06:21 Neut # (Auto) 7.14 K/mm3 (1.56-6.13) H 03/19/20 06:21 Lymph # (Auto) 1.33 K/mm3 (1.18-3.74) 03/19/20 06:21 [place] # (Auto) 0.80 K/mm3 (0.24-0.36) H 03/19/20 06:21 Eos # (Auto) 0.08 K/mm3 (0.04-0.36) 03/19/20 06:21 Baso # (Auto) 0.01 K/mm3 (0.01-0.08) 03/19/20 06:21 - Allergies Allergies/Adverse Reactions: Allergies Allergy/AdvReac Type Severity Reaction Status Date / Time No Known Allergies Allergy Verified 03/18/20 13:57 - Acknowledgements Anesthesia Type Planned: Spinal Pt an Appropriate Candidate for the Planned Anesthesia: Yes Alternatives and Risks of Anesthesia Discussed w Pt/Guardian: Yes Pt/Guardian Understands and Agrees with Anesthesia Plan: Yes PreAnesthesia Questionnaire - Past Health History Medical/Surgical History: Denies Medical/Surgical History Gastrointestinal History: Reports: GERD VAPOR COATER History: Reports: , Spontaneous , Other (See Below) Other OB/BYN History: C/S x2 (2018 with twins, 2019). 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 - SUBSTANCE USE Tobacco Use Status *Q: Never Tobacco User Tobacco Use Within Last Twelve Months: No Second Hand Smoke Exposure: No Recreational Drug Use History: No - HOME MEDS Home Medications: Home Meds Vit/FA/Fe Fumarate/Se [ MTR] 1 tab PO DAILY 10/17/18 [History] - CURRENT (IN HOUSE) MEDS Current Meds: Current Medications Cefazolin Sodium/Dextrose 2 gm (/ Premix) 50 mls @ 100 mls/hr IV ONETIME ONE Stop: 03/19/20 07:59 Oxytocin/Lactated Ringer's (Pitocin In Lr 20 Units/1,000 Ml) 20 unit in 1,000 mls @ 500 mls/hr IV TITRATE ARIANA Lactated Ringer's (Ringers, Lactated) 1,000 mls @ 125 mls/hr IV ASDIRECTED ARIANA Last Admin: 03/19/20 06:49 Dose: 125 mls/hr Documented by: Sodium Chloride (Saline Flush) 10 ml FLUSH ASDIRECTED PRN PRN Reason: Keep Vein Open Discontinued Medications Cefazolin Sodium (Ancef) Confirm Administered Dose 2 gm .ROUTE .STK-MED ONE Stop: 03/19/20 06:58 Citric Acid/Sodium Citrate (Bicitra Solution) 30 ml PO ONETIME ONE Stop: 03/19/20 05:31 Citric Acid/Sodium Citrate (Bicitra Solution) Confirm Administered Dose 30 ml .ROUTE .STK-MED ONE Stop: 03/19/20 06:47 Fentanyl (Sublimaze) Confirm Administered Dose 100 mcg .ROUTE .STK-MED ONE Stop: 03/19/20 06:51 Metoclopramide HCl (Reglan) 10 mg IVPUSH ONETIME ONE Stop: 03/19/20 05:31 Morphine Sulfate (Duramorph Pf) Confirm Administered Dose 10 mg .ROUTE .STK-MED ONE Stop: 03/19/20 06:51 Oxytocin (Pitocin) Confirm Administered Dose 20 unit .ROUTE .STK-MED ONE Stop: 03/19/20 06:51
[2020-03-19] MEDS ORDERED: ceFAZolin 2 GM in Premix Bag 1 BAG IV ONE (07:30)
[2020-03-19] MEDS ORDERED: Oxytocin/Lactated Ringers 20 UNIT/1,000 ML BAG IV SCH (07:30)
[2020-03-19] MEDS ORDERED: Lactated Ringers 1,000 ML ONE ×2 (07:50→08:24)
[2020-03-19] MEDS ORDERED: fentaNYL 100 MCG/2 ML SDV IVPUSH PRN (08:14)
[2020-03-19] MEDS ORDERED: diphenhydrAMINE 50 MG/ML SDV IVPUSH PRN ×2 (08:14→10:57)
[2020-03-19] MEDS ORDERED: Ondansetron 4 MG/2 ML SDV IVPUSH PRN (08:14)
[2020-03-19] MEDS ORDERED: ePHEDrine 50 MG/ML SDV ONE (08:25)
[2020-03-19] MEDS ORDERED: Ketorolac 30 MG/ML SDV ONE (08:29)
--- NOTE | 2020-03-19 08:46 | PCM.OPNOTE ---
- General Post-Op/Procedure Note Date of Surgery/Procedure: 03/19/20 Operative Procedure(s): section repeat Pre Op Diagnosis: Previous section x2 Post-Op Diagnosis: Same plus cord x1, meconium stained amniotic fluid Anesthesia Technique: Spinal Primary Surgeon: Nigel Rutledge Secondary Surgeon: Rosalino Kasper Anesthesia Provider: Panchito Hernandez Warehouse Delivery Manager: Alyssia Maldonado Reason Warehouse Delivery Manager Was Necessary: Assist surgery, decrease comorbidity and mortality Role of Warehouse Delivery Manager: Assist surgery, decrease comorbidity and mortality Fluid Replacement, Intraop: 2,000 Output, Urine Amount: 150 EBL in mLs: 500 Drain/Tube Comments:: Sams to gravity drainage Complications: None Condition: Good Free Text/Narrative:: Patient was transported to the operating room having received 2 g of Ancef intravenously prior to surgery. Spinal anesthesia was placed and patient was placed in the supine position with a wedge on the right hip and right flank. SCDs in place and functioning prior to surgery. Timeout performed confirming repeat section name and date of . Patient was prepared and draped in a sterile fashion after the Sams catheter was placed. Confirmed adequate anesthesia and patient's was brought to the operating room. Having been prepared and draped in a sterile fashion Pfannenstiel incision was made and carried with sharp dissection to and through the old incision. Anterior fascia incised transversely. The abdominal cavity was entered without difficulty. Bladder flap created and pushed caudad. Low segment transverse performed delivering a male liveborn at 0804 hrs. on 03/19/2020 weight 3430 g 7 pounds 9 ounces Apgars 8/9. Nuchal cord x1. Light meconium-stained amniotic fluid. Bladder Blower in attendance throughout (Dr. Bazan) Cord was clamped cord blood collected from three-vessel cord placenta removed manually with endometrial cavity inspected and additional remnants of membranes removed. Cervical patency assured. Sponge needle pack instrument count correct x1 and the uterus was closed in 2 layers first layer running locking suture of 0 Monocryl, second layer horizontal imbricating suture of 0 Monocryl. 1 additional [id number] suture at the left angle of the incision placed for hemostasis. Both tubes and ovaries were normal. The uterus replaced into the abdominal cavity after clots cleaned from the gutters and cul-de-sac. The uterine incision reinspected no bleeding. Sponge needle pack instrument count correct x2 and the abdominal cavity was closed with #1 PDS for the anterior fascia. Irrigation was carried out in the subcutaneous tissue. The skin was closed with subcuticular suture of 3-0 Monocryl with a Theodore needle Dermabond Preneo applied. Clots were cleaned from the [place]. Patient transported postanesthesia care unit in satisfactory condition no blood transfusions required.
--- NOTE | 2020-03-19 08:56 | PCM.POSTAN ---
POST ANESTHESIA ASSESSMENT - MENTAL STATUS Mental Status: Alert, Oriented - VITAL SIGNS Vital Signs: Last Vital Signs Temp 97.9 F 03/19/20 08:40 Pulse 77 03/19/20 08:40 Resp 18 03/19/20 08:40 BP 116/71 03/19/20 08:40 Pulse Ox 99 03/19/20 08:40 - RESPIRATORY Respiratory Status: Respiratory Rate WNL, Airway Patent, O2 Saturation Stable - CARDIOVASCULAR CV Status: Pulse Rate WNL, Blood Pressure Stable - GASTROINTESTINAL GI Status: No Symptoms - PAIN Pain Score: 0 (post SAB) - POST OP HYDRATION Hydration Status: Adequate & Stable
[2020-03-19] MEDS ORDERED: ePHEDrine 50 MG/ML SDV IVPUSH PRN (10:57)
[2020-03-19] MEDS ORDERED: Acetaminophen/oxyCODONE 325-5 MG Tab PO PRN (10:57)
[2020-03-19] MEDS ORDERED: Acetaminophen 325 MG Tab PO PRN (10:57)
[2020-03-19] MEDS ORDERED: Dextrose 5%-Lactated Ringers 1,000 ML IV SCH (10:57)
[2020-03-19] MEDS ORDERED: Ondansetron 4 MG/2 ML SDV IV PRN (10:57)
[2020-03-19] MEDS ORDERED: Naloxone 0.4 MG/ML SDV IVPUSH PRN (10:57)
[2020-03-19] MEDS ORDERED: Docusate Sodium 100 MG Cap PO PRN (10:57)
[2020-03-19] MEDS: Simethicone 80 MG Tab.Chew PO SCH ×2 (13:07→19:39)
[2020-03-19] MEDS: Ketorolac 30 MG/ML SDV IVPUSH PRN (19:39)
[2020-03-19] MEDS: Acetaminophen/oxyCODONE 325-5 MG Tab PO PRN (19:43)
[2020-03-20] MEDS: Ketorolac 30 MG/ML SDV IVPUSH PRN (04:38)
[2020-03-20] MEDS: Acetaminophen/oxyCODONE 325-5 MG Tab PO PRN ×2 (04:42→09:44)
[2020-03-20] MEDS: Simethicone 80 MG Tab.Chew PO SCH ×5 (04:57→22:22)
--- NOTE | 2020-03-20 07:06 | PCM48HPAN ---
Post Anesthesia Note - EVALUATION WITHIN 48HRS OF ANESTHETIC Vital Signs in Normal Range: Yes Patient Participated in Evaluation: Yes Respiratory Function Stable: Yes Airway Patent: Yes Cardiovascular Function Stable: Yes Hydration Status Stable: Yes Pain Control Satisfactory: Yes Nausea and Vomiting Control Satisfactory: Yes Mental Status Recovered: Yes Vital Signs: Last Vital Signs Temp 36.2 C 03/19/20 16:20 Pulse 81 03/20/20 04:32 Resp 16 03/19/20 19:00 BP 101/64 03/20/20 04:32 Pulse Ox 98 03/20/20 04:32 - COMMENTS/OBSERVATIONS Free Text/Narrative:: no anesthesia complications noted
--- NOTE | 2020-03-20 09:23 | PCM.SN.2 ---
- Free Text/Narrative Note: Post Operative Progress Note POD #1 Subjective: Doing well overall. Ambulating without difficulty. Lochia minimal. Sams catheter removed earlier this morning and has been able to urinate without difficulty. Passing small amounts of flatus. Tolerating regular diet without nausea or vomiting. Pain controlled with Toradol and has not been using any opioid medications. She is concerned that using the opioid medications may be too strong for her. Breast-feeding with minimal difficulty. Objective: Vitals: Vital Signs - 8 hr 03/20/20 04:32 Pulse, 81 Peripheral Blood Pressure 101/64 O2 Sat by Pulse 98 Oximetry Physical Exam General: Alert and oriented, no acute distress Lungs: Clear to auscultation bilaterally Heart: Regular rate and rhythm Abdomen: Soft, minimal appropriate tenderness, non-distended, fundus midline, nontender and at the umbilicus Incision: Clean, dry and intact, no erythema, bleeding or drainage with Prineo dressing in place Extremities: No edema Labs: Laboratory Tests 03/19/20 03/19/20 03/19/20 Range/Units 06:21 06:21 06:21 WBC 9.39 (3.98-10.04) K/mm3 RBC 3.95 L (3.98-5.22) M/mm3 Hgb 11.1 L (11.2-15.7) gm/dl Hct 34.4 (34.1-44.9) % MCV 87.1 (79.4-94.8) fl MCH 28.1 (25.6-32.2) pg MCHC 32.3 (32.2-35.5) g/dl RDW Std Deviation 44.0 (36.4-46.3) fL Plt Count 117 L (182-369) K/mm3 MPV 11.8 (9.4-12.3) fl Neut % (Auto) 76.0 H (34.0-71.1) % Lymph % (Auto) 14.2 L (19.3-51.7) % [place] % (Auto) 8.5 (4.7-12.5) % Eos % (Auto) 0.9 (0.7-5.8) Baso % (Auto) 0.1 (0.1-1.2) % Neut # (Auto) 7.14 H (1.56-6.13) K/mm3 Lymph # (Auto) 1.33 (1.18-3.74) K/mm3 [place] # (Auto) 0.80 H (0.24-0.36) K/mm3 Eos # (Auto) 0.08 (0.04-0.36) K/mm3 Baso # (Auto) 0.01 (0.01-0.08) K/mm3 RPR Non-reactive (NONREACTIVE) Blood Type O POSITIVE Gel Antibody Screen Positive 03/20/20 Range/Units 05:55 WBC 9.75 (3.98-10.04) K/mm3 RBC 3.75 L (3.98-5.22) M/mm3 Hgb 10.4 L (11.2-15.7) gm/dl Hct 32.6 L (34.1-44.9) % MCV 86.9 (79.4-94.8) fl MCH 27.7 (25.6-32.2) pg MCHC 31.9 L (32.2-35.5) g/dl RDW Std Deviation 45.0 (36.4-46.3) fL Plt Count 114 L (182-369) K/mm3 MPV 12.4 H (9.4-12.3) fl Neut % (Auto) 76.3 H (34.0-71.1) % Lymph % (Auto) 12.1 L (19.3-51.7) % [place] % (Auto) 10.8 (4.7-12.5) % Eos % (Auto) 0.6 L (0.7-5.8) Baso % (Auto) 0.1 (0.1-1.2) % Neut # (Auto) 7.44 H (1.56-6.13) K/mm3 Lymph # (Auto) 1.18 (1.18-3.74) K/mm3 [place] # (Auto) 1.05 H (0.24-0.36) K/mm3 Eos # (Auto) 0.06 (0.04-0.36) K/mm3 Baso # (Auto) 0.01 (0.01-0.08) K/mm3 RPR (NONREACTIVE) Blood Type Gel Antibody Screen ASSESSMENT: 29-year-old female -0-1-5 (1 set of twins) s/p repeat section POD #1 for history of section, complicated by anti-M antibody PLAN: Doing well Breast-feeding with minimal difficulty. Assist as needed Incision healing well. Continue to keep clean and dry. Lochia minimal. Continue to monitor for appropriate lochia. Continue routine post-operative care Anticipate discharge home tomorrow Rosalino Kasper MD 9:25 AM 03/20/2020
[2020-03-20] MEDS: Ibuprofen 600 MG Tab PO PRN ×2 (12:21→18:22)
[2020-03-20] MEDS ORDERED: oxyCODONE 5 MG Tab PO PRN ×2 (13:17)
[2020-03-20] MEDS: Acetaminophen 325 MG Tab PO SCH ×2 (16:14→22:21)
[2020-03-21] MEDS: Ibuprofen 600 MG Tab PO PRN (02:03)
[2020-03-21] MEDS: Acetaminophen 325 MG Tab PO SCH ×2 (04:31→09:25)
[2020-03-21 09:15] VITALS: BP 110/66; PULSE 71
[2020-03-21] MEDS: Simethicone 80 MG Tab.Chew PO SCH (09:25)
--- NOTE | 2020-03-21 09:27 | PCM.SN.2 ---
- Free Text/Narrative Note: Post Operative Progress Note POD #2 Subjective: Doing well overall. Ambulating without difficulty. Lochia minimal. Voiding without difficulty. Passing flatus but has not had a bowel movement. Tolerating regular diet without nausea or vomiting. Pain overall controlled with Tylenol and ibuprofen but feels like it could be a little bit better controlled. She has not been taking the narcotic medications prescribed for her. Breast-feeding with minimal difficulty. Objective: Vitals: Vital Signs - 24 hr 03/20/20 03/20/20 03/20/20 09:35 16:12 20:49 Temperature 36.4 C 36.9 C 36.6 C Pulse, 86 63 73 Peripheral Respiratory 15 16 Rate Blood Pressure 106/57 L 93/55 L 99/74 O2 Sat by Pulse 100 99 97 Oximetry 03/21/20 09:10 Temperature 36.3 C Pulse, 71 Peripheral Respiratory 16 Rate Blood Pressure 110/66 O2 Sat by Pulse 98 Oximetry Physical Exam General: Alert and oriented, no acute distress Lungs: Clear to auscultation bilaterally Heart: Regular rate and rhythm Abdomen: Soft, minimal appropriate tenderness, non-distended, fundus midline, nontender and 1 fingerbreadth below the umbilicus Incision: Clean, dry and intact, no erythema, bleeding or drainage with Prineo dressing in place Extremities: No edema Labs: Laboratory Results - last 24 hr 03/19/20 Range/Units 06:21 Antibody Identification No Antibodies Identified ASSESSMENT: 29-year-old female -0-1-5 (1 set of twins) s/p repeat section POD #2 for history of section, complicated by anti-M antibody PLAN: Doing well Breast-feeding with minimal difficulty. Assist as needed Incision healing well. Continue to keep clean and dry. Lochia minimal. Continue to monitor for appropriate lochia. Continue routine post-operative care Discharge home today Rosalino Kasper MD 9:25 AM 03/21/2020
--- NOTE | 2020-03-21 10:02 | PCM.DCSUM1 ---
Discharge Summary - Hospital Course Free Text/Narrative:: - General Post-Op/Procedure Note Date of Surgery/Procedure: 03/19/20 Operative Procedure(s): section repeat Pre Op Diagnosis: Previous section x2 Post-Op Diagnosis: Same plus cord x1, meconium stained amniotic fluid Anesthesia Technique: Spinal Primary Surgeon: Nigel Rutledge Secondary Surgeon: Rosalino Kasper Anesthesia Provider: Panchito Hernandez Heat Set Operator: Alyssia Maldonado Reason Heat Set Operator Was Necessary: Assist surgery, decrease comorbidity and mortality Role of Heat Set Operator: Assist surgery, decrease comorbidity and mortality Fluid Replacement, Intraop: 2,000 Output, Urine Amount: 150 EBL in mLs: 500 Drain/Tube Comments:: Sams to gravity drainage Complications: None Condition: Good Free Text/Narrative:: Patient was transported to the operating room having received 2 g of Ancef intravenously prior to surgery. Spinal anesthesia was placed and patient was placed in the supine position with a wedge on the right hip and right flank. SCDs in place and functioning prior to surgery. Timeout performed confirming repeat section name and date of . Patient was prepared and draped in a sterile fashion after the Sams catheter was placed. Confirmed adequate anesthesia and patient's was brought to the operating room. Having been prepared and draped in a sterile fashion Pfannenstiel incision was made and carried with sharp dissection to and through the old incision. Anterior fascia incised transversely. The abdominal cavity was entered without difficulty. Bladder flap created and pushed caudad. Low segment transverse performed delivering a male liveborn at 0804 hrs. on 03/19/2020 weight 3430 g 7 pounds 9 ounces Apgars 8/9. Nuchal cord x1. Light meconium-stained amniotic fluid. Spanish Instructor in attendance throughout (Dr. Bazan) Cord was clamped cord blood collected from three-vessel cord placenta removed manually with endometrial cavity inspected and additional remnants of membranes removed. Cervical patency assured. Sponge needle pack instrument count correct x1 and the uterus was closed in 2 layers first layer running locking suture of 0 Monocryl, second layer horizontal imbricating suture of 0 Monocryl. 1 additional [id number] suture at the left angle of the incision placed for hemostasis. Both tubes and ovaries were normal. The uterus replaced into the abdominal cavity after clots cleaned from the gutters and cul-de-sac. The uterine incision reinspected no bleeding. Sponge needle pack instrument count correct x2 and the abdominal cavity was closed with #1 PDS for the anterior fascia. Irrigation was carried out in the subcutaneous tissue. The skin was closed with subcuticular suture of 3-0 Monocryl with a Hteodore needle Dermabond Preneo applied. Clots were cleaned from the [place]. Patient transported postanesthesia care unit in satisfactory condition no blood transfusions required. 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 She was taken back to the OR and given spinal injection for anesthesia. She was given Ancef 2 g IV for antibiotic prophylaxis. She was prepped and draped in the normal fashion. On 03/19/2020 she had a repeat delivery of a live male infant at 08:04. Apgars of 8 and 9. Weight of 3430 g (7 pounds 9 ounces). She was closed in a normal fashion. There were no complications with the procedure. There was light meconium stained fluid on rupture membranes. Please see the operative report for full details. Her post operative course was uneventful. Her pain was well controlled and she had minimal lochia. She was ambulating, tolerating a regular diet and voiding normally. She was passing flatus and has not had a bowel movement. She was breast feeding without difficulty. She was afebrile and her hematocrit was 32.6 on POD #1. She desired to be discharged home on the morning of POD #2. Her blood type is O+. There were abnormal antibodies identified on the initial antibody screen but on identification none were identified. - Patient Instructions Diet: Regular Diet as Tolerated Activity: Apply Ice, As Tolerated, No Lifting Over 25 Pounds Activity, Other: Nothing in the vagina for 6 weeks Driving: Do Not Drive (While taking narcotic medications are having significant pain.) Showering/Bathing: May Shower Wound/Incision Care: Keep Operative Site/Wound Site Clean and Dry Notify Provider of: Fever, Increased Pain, Swelling and Redness, Drainage, Nausea and/or Vomiting Other/Special Instructions: Please contact your physician's office if you note any bleeding or pus coming from the abdominal incision. Please contact your physician's office if you have heavy vaginal bleeding enough to soak a pad in less than an hour for several hours. Monitor for any signs of an infection in the breasts with severe pain or redness of the breast. - Discharge Plan *PRESCRIPTION DRUG MONITORING PROGRAM REVIEWED*: Yes *COPY OF PRESCRIPTION DRUG MONITORING REPORT IN PATIENT CASSIDY: No Prescriptions/Med Rec: oxyCODONE 5 - 10 mg PO Q6H PRN #30 tablet PRN Reason: Pain Home Medications: Home Meds Vit/FA/Fe Fumarate/Se [ MTR] 1 tab PO DAILY / [History] Acetaminophen [Tylenol] 650 mg PO Q6H tablet 03/21/20 [Rx] Docusate Sodium [Colace] 100 mg PO Q12H PRN cap 03/21/20 [Rx] Ibuprofen [Motrin] 600 mg PO Q6H PRN tablet 03/21/20 [Rx] oxyCODONE 5 - 10 mg PO Q6H PRN #30 tablet 03/21/20 [Rx] Patient Handouts: Care After Delivery Referrals: Rosalino Kasper MD [Physician] - (Follow-up in 1 to 2 weeks for routine postoperative visit. 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.) - Discharge Summary/Plan Comment DC Time >30 min.: No - Patient Data Vitals - Most Recent: Last Vital Signs Temp 36.3 C 03/21/20 09:10 Pulse 71 03/21/20 09:10 Resp 16 03/21/20 09:10 BP 110/66 03/21/20 09:10 Pulse Ox 98 03/21/20 09:10 Weight - Most Recent: 89.675 kg Lab Results - Last 24 hrs: Laboratory Results - last 24 hr 03/19/20 Range/Units 06:21 Antibody Identification No Antibodies Identified Med Orders - Current: Current Medications Acetaminophen (Tylenol) 650 mg PO Q6H [facility] Last Admin: 03/21/20 09:25 Dose: 650 mg Documented by: Diphenhydramine HCl (Benadryl) 25 mg IVPUSH Q6H PRN PRN Reason: Itching or Nausea Docusate Sodium (Colace) 100 mg PO Q12H PRN PRN Reason: Constipation Ephedrine Sulfate (Ephedrine Sulfate) 5 mg IVPUSH SEECOMMENT PRN PRN Reason: Other Ibuprofen (Motrin) 600 mg PO Q6H PRN PRN Reason: mild pain or fever Last Admin: 03/21/20 02:03 Dose: 600 mg Documented by: Ketorolac Tromethamine (Toradol) 30 mg IVPUSH Q6H PRN PRN Reason: Pain Last Admin: 03/20/20 04:38 Dose: 30 mg Documented by: Naloxone HCl (Narcan) 0.1 mg IVPUSH SEECOMMENT PRN PRN Reason: Respiratory Depression Ondansetron HCl (Zofran) 4 mg IV Q8H PRN PRN Reason: Nausea/Vomiting Oxycodone HCl (Oxycodone) 5 mg PO Q6H PRN PRN Reason: Pain (moderate 4-6) Oxycodone HCl (Oxycodone) 10 mg PO Q6H PRN PRN Reason: Pain (severe 7-10) Simethicone (Simethicone) 80 mg PO QID [facility] Last Admin: 03/21/20 09:25 Dose: 80 mg Documented by: Discontinued Medications Acetaminophen (Tylenol) 650 mg PO Q4H PRN PRN Reason: mild pain or fever Bupivacaine HCl (Marcaine 0.5%) Confirm Administered Dose 30 ml .ROUTE .STK-MED ONE Stop: 03/19/20 07:14 Last Admin: 03/19/20 08:01 Dose: 18 ml Documented by: Cefazolin Sodium (Ancef) Confirm Administered Dose 2 gm .ROUTE .STK-MED ONE Stop: 03/19/20 06:58 Citric Acid/Sodium Citrate (Bicitra Solution) 30 ml PO ONETIME ONE Stop: 03/19/20 05:31 Last Admin: 03/19/20 07:26 Dose: 30 ml Documented by: Citric Acid/Sodium Citrate (Bicitra Solution) Confirm Administered Dose 30 ml .ROUTE .STK-MED ONE Stop: 03/19/20 06:47 Last Admin: 03/20/20 23:42 Dose: Not Given Documented by: Diphenhydramine HCl (Benadryl) 25 mg IVPUSH Q6H PRN PRN Reason: Pruritis Ephedrine Sulfate (Ephedrine Sulfate) Confirm Administered Dose 50 mg .ROUTE .STK-MED ONE Stop: 03/19/20 08:26 Fentanyl (Sublimaze) Confirm Administered Dose 100 mcg .ROUTE .STK-MED ONE Stop: 03/19/20 06:51 Fentanyl (Sublimaze) 50 mcg IVPUSH Q5M PRN PRN Reason: Pain Cefazolin Sodium/Dextrose 2 gm (/ Premix) 50 mls @ 100 mls/hr IV ONETIME ONE Stop: 03/19/20 07:59 Last Admin: 03/20/20 23:42 Dose: Not Given Documented by: Oxytocin/Lactated Ringer's (Pitocin In Lr 20 Units/1,000 Ml) 20 unit in 1,000 mls @ 500 mls/hr IV TITRATE [facility] Lactated Ringer's (Ringers, Lactated) 1,000 mls @ 125 mls/hr IV ASDIRECTED [facility] Last Admin: 03/19/20 06:49 Dose: 125 mls/hr Documented by: Lactated Ringer's (Ringers, Lactated) Confirm Administered Dose 1,000 mls @ as directed .ROUTE .STK-MED ONE Stop: 03/19/20 07:51 Lactated Ringer's (Ringers, Lactated) Confirm Administered Dose 1,000 mls @ as directed .ROUTE .STK-MED ONE Stop: 03/19/20 08:25 Dextrose/Lactated Ringer's (Dextrose 5%-Lactated Ringers) 1,000 mls @ 125 mls/hr IV ASDIRECTED ARIANA Stop: 03/19/20 18:56 Last Admin: 03/19/20 13:08 Dose: 125 mls/hr Documented by: Ketorolac Tromethamine (Toradol) Confirm Administered Dose 30 mg .ROUTE .STK-MED ONE Stop: 03/19/20 08:30 Metoclopramide HCl (Reglan) 10 mg IVPUSH ONETIME ONE Stop: 03/19/20 05:31 Last Admin: 03/19/20 07:26 Dose: 10 mg Documented by: Miscellaneous Medication (Phenylephrine 1 Mg/10 Ml-Ns) Confirm Administered Dose 1 mg .ROUTE .STK-MED ONE Stop: 03/19/20 07:57 Morphine Sulfate (Duramorph Pf) Confirm Administered Dose 10 mg .ROUTE .STK-MED ONE Stop: 03/19/20 06:51 Ondansetron HCl (Zofran) 4 mg IVPUSH ONETIME PRN PRN Reason: Nausea/Vomiting Oxycodone/Acetaminophen (Percocet 325-5 Mg) 1 tab PO Q4H PRN PRN Reason: Pain (moderate 4-6) Last Admin: 03/20/20 09:44 Dose: 1 tab Documented by: Oxycodone/Acetaminophen (Percocet 325-5 Mg) 2 tab PO Q4H PRN PRN Reason: Pain (severe 7-10) Oxytocin (Pitocin) Confirm Administered Dose 20 unit .ROUTE .STK-MED ONE Stop: 03/19/20 06:51 Oxytocin (Pitocin) Confirm Administered Dose 20 unit .ROUTE .STK-MED ONE Stop: 03/19/20 08:25 Sodium Chloride (Saline Flush) 10 ml FLUSH ASDIRECTED PRN PRN Reason: Keep Vein Open
== END 2020-03-21 11:00 | disposition home or self-care (01) | DRG 788 ==
LOC: JD.OB 05:39 → JD.MS 03-21 00:01
PROVIDERS: ADMIT Obstetrics & Gynecology; ATTEND Obstetrics & Gynecology
PROC: 10D00Z1 Extraction of Products of Conception, Low, Open Approach (ICD-10-PCS; principal; 2020-03-19)
DX: O36.1930 Maternal care for other isoimmunization, third trimester, not applicable or unspecified (principal); O34.211 Maternal care for low transverse scar from previous cesarean delivery; O77.0 Labor and delivery complicated by meconium in amniotic fluid; O99.62 Diseases of the digestive system complicating childbirth; K21.9 Gastro-esophageal reflux disease without esophagitis; O99.02 Anemia complicating childbirth; D64.9 Anemia, unspecified; Z37.0 Single live birth; Z3A.39 39 weeks gestation of pregnancy
CPT/HCPCS: 01961; 36415; 59025; 85025; 86592; 86850; 86870; 86900; 86901; 94762; A9270-GY; J0690; J1885; J2270; J2370; J2590; J2765; J3010; J3490; J7120; J7121

== ENCOUNTER 2022-12-28 08:06 | Emergency (ER) | payer BC, MEDICAID ==
[2022-12-28 10:08] VITALS: BP 117/64; PULSE 77
== END 2022-12-28 09:56 | disposition home or self-care (01) ==
LOC: JD.ED 08:06
DX: S93.402A Sprain of unspecified ligament of left ankle, initial encounter (principal); K21.9 Gastro-esophageal reflux disease without esophagitis; W19.XXXA Unspecified fall, initial encounter
CPT/HCPCS: 73610-26-LT; 73610-LT; 99282; 99283

== ENCOUNTER 2024-07-10 21:12 | Emergency (ER) | payer SELFPAY ==
[2024-07-10 21:54] LABS: BASOPHILS PERCENT AUTO 0.3 % (0.0-1.0); EOSINOPHILS ABSOLUTE AUTO 0.2 K/mm3 (0.0-0.4); EOSINOPHILS PERCENT AUTO 1.8 % (0.0-6.0); HEMATOCRIT 36.7 % (37.0-47.0); HEMOGLOBIN 11.7 gm/dl (12.0-16.0); IMMATURE GRAN ABSOLUTE AUTO 0.02 K/mm3 (0.00-0.05); IMMATURE GRAN PERCENT AUTO 0.2 % (0.0-0.4); LYMPHOCYTES ABSOLUTE AUTO 2.4 K/mm3 (1.0-4.8); LYMPHOCYTES PERCENT AUTO 25.6 % (24.0-44.0); MEAN CORPUSCULAR HGB CONC 31.9 g/dl (32.0-36.0); MEAN CORPUSCULAR VOLUME 81.6 fl (83.0-99.0); MEAN PLATELET VOLUME 11.6 fl (9.4-12.3); MONOCYTES ABSOLUTE AUTO 0.9 K/mm3 (0.0-0.8); MONOCYTES PERCENT AUTO 9.7 % (0.0-8.0); NEUTROPHILS ABSOLUTE AUTO 5.8 K/mm3 (1.8-7.7); NEUTROPHILS PERCENT AUTO 62.4 % (41.0-71.0); PLATELET COUNT,PLT 213 K/mm3 (150-400); WHITE BLOOD CELL COUNT,WBC 9.34 K/mm3 (3.9-11.3)
[2024-07-10] MEDS: Acetaminophen 325 MG Tab PO ONE (22:00)
[2024-07-10] MEDS: Sodium Chloride 0.9% 1,000 ML IV ONE (22:00)
[2024-07-10] MEDS: Ondansetron 4 MG/2 ML SDV IVPUSH ONE (22:01)
[2024-07-10] MEDS: Famotidine 20 MG/2 ML SDV IVPUSH ONE (22:03)
[2024-07-10 22:06] LABS: BARBITURATE SCREEN,URINE NEGATIVE (CUTOFF=200); BENZODIAZEPINES SCREEN,URINE NEGATIVE (CUTOFF=150); BUPRENORPHINE SCREEN,URINE NEGATIVE (CUTOFF=10); METHADONE SCREEN, URINE NEGATIVE (CUTOFF=200); METHAMPHETAMINES SCREEN, URINE NEGATIVE (CUTOFF=500); OXYCODONE SCREEN,URINE NEGATIVE (CUT0FF=100); THC SCREEN,URINE 20 NG/ML NEGATIVE (CUTOFF=50)
[2024-07-10] MEDS: Alum Hydrox/Mag Hydrox/Simeth 30 ML, Lidocaine 2% 15 ML PO ONE (22:06)
[2024-07-10] MEDS: Pantoprazole 40 MG Vial IVPUSH ONE (22:06)
[2024-07-10 22:07] LABS: AMPHETAMINES SCREEN, URINE NEGATIVE (CUTOFF=500)
[2024-07-10] MEDS: Iopamidol 612 MG/ML 100 ML Bottle IVPUSH ONE (22:12)
[2024-07-10 22:21] LABS: ANION GAP 12.9 (5-15); BILIRUBIN TOTAL 0.2 mg/dL (0.2-1.0); BUN/CREATININE RATIO 21.3 (14-18); CALCIUM 8.9 mg/dL (8.5-10.1); CREATININE 0.8 mg/dL (0.55-1.02); EST CRCL DRUG DOSING (CG) 87.18 mL/min; MAGNESIUM 1.9 mg/dL (1.8-2.4); POTASSIUM,K 3.9 mEq/L (3.5-5.1); PROTEIN TOTAL,TP 7.5 g/dl (6.4-8.2)
[2024-07-10 22:31] LABS: A/G RATIO 0.8 (1-2); ALBUMIN 3.4 g/dl (3.4-5.0)
[2024-07-10 23:13] VITALS: BP 106/69; PULSE 81
== END 2024-07-10 23:06 | disposition home or self-care (01) ==
LOC: JD.ED 21:12
DX: K21.9 Gastro-esophageal reflux disease without esophagitis (principal); N83.201 Unspecified ovarian cyst, right side; Z79.899 Other long term (current) drug therapy
CPT/HCPCS: 36415; 74177; 80053; 80306; 83690; 83735; 85025; 96361; 96374; 96375; 99285; A9270; J2405; J2470; J7030; Q9967; 99284